=== PATIENT | male | born 1955 | race Caucasian/White ===

== ENCOUNTER 2020-06-04 01:36 | Emergency (ER) | payer MEDICARE, OTHER ==
[~2020-06-04] VITALS: Ht 170.2 cm; Wt 70.3 kg
--- NOTE | 2020-06-04 01:40 | NUR ---
at bedside for MSE
--- NOTE | 2020-06-04 02:00 | NUR ---
Dr. Mena inserted GT 18 fr pt tolerated well no trauma, no bleeding GT patent, intact
[2020-06-04] MEDS ORDERED: POLY17PO4 GT (02:05)
[2020-06-04] MEDS ORDERED: LEVE100S GT (02:05)
[2020-06-04] MEDS ORDERED: MAGN400O6 GT (02:05)
[2020-06-04] MEDS ORDERED: CLON0.1T GT (02:05)
[2020-06-04] MEDS ORDERED: AMLO5TAB4 GT (02:05)
[2020-06-04] MEDS ORDERED: IPRA0.2S48 NEB (02:05)
[2020-06-04] MEDS ORDERED: DOCU-141 GT (02:05)
[2020-06-04] MEDS ORDERED: FAMO-132 GT (02:05)
[2020-06-04] MEDS ORDERED: ACET-2154 GT (02:05)
[2020-06-04] MEDS ORDERED: IV NORMAL SALINE 1000 ML BAG IV ONE (02:30)
[2020-06-04 02:35] LABS: BASOPHILS # (AUTO) 0.1 K/uL (0.0-8.0); BASOPHILS % (AUTO) 0.7 % (0.0-2.0); EOSINOPHILS # (AUTO) 0.1 K/uL (0.0-0.7); EOSINOPHILS % (AUTO) 0.5 % (0.0-7.0); HEMATOCRIT 41.4 % (36.7-47.1); HEMOGLOBIN 13.9 g/dL (12.5-16.3); LYMPHOCYTES # (AUTO) 1.8 K/uL (20.0-40.0); LYMPHOCYTES % (AUTO) 15.7 % (20.5-51.5); MEAN CORPUSCULAR HGB CONC 34 g/dL (32.5-36.3); MEAN CORPUSCULAR VOLUME 95.4 fL (73.0-96.2); MONOCYTES # (AUTO) 0.7 K/uL (2.0-10.0); MONOCYTES % (AUTO) 6.4 % (0.0-11.0); NEUTROPHILS # (AUTO) 8.8 K/uL (1.8-8.9); NEUTROPHILS % (AUTO) 76.7 % (38.5-71.5); PLATELET COUNT (AUTO) 312 K/uL (152-348); RED BLOOD CELL COUNT(AUTO) 4.34 MIL/uL (4.06-5.63); WHITE BLOOD COUNT (AUTO) 11.5 K/uL (3.6-10.2)
[2020-06-04 02:45] LABS: CREATININE 0.9 mg/dL (0.6-1.3); POTASSIUM 4.3 mmol/L (3.5-5.1)
[2020-06-04 02:46] LABS: *BILIRUBIN,URIN NEGATIVE (NEGATIVE); *BLOOD, URINE NEGATIVE (NEGATIVE); *CLARITY,URINE CLEAR (CLEAR); *COLOR,URINE YELLOW (YELLOW); *KETONES,URINE NEGATIVE (NEGATIVE); *UROBILINOGEN,URINE 0.2 E.U./dl (NORMAL); LEUKOCYTE ESTERASE ,URINE NEGATIVE (NEGATIVE); NITRITE, URINE NEGATIVE (NEGATIVE); UGLUCOSE NEGATIVE (NEGATIVE)
--- NOTE | 2020-06-04 02:50 | NUR ---
Xray at bedside
[2020-06-04 02:57] LABS: BILIRUBIN,DIRECT 0.1 mg/dL (0.0-0.2); BILIRUBIN,TOTAL 0.6 mg/dL (0.2-1.0); TOTAL PROTEIN, SERUM 8.6 g/dL (6.4-8.2)
--- NOTE | 2020-06-04 04:00 | NUR ---
pt in bed, asleep. easily arousable no s/s of distress respirations even and unlabored safety precaution in place. bed locked, lowest position. Will continue to monitor pt
[2020-06-04] MEDS ORDERED: levoFLOXacin 750MG/D5W 750 MG in PREMIXED 1 EACH IV SCH (04:30)
--- NOTE | 2020-06-04 04:31 | NUR ---
Called for bed, spoke with JIN Alvarado. Tele 314
--- NOTE | 2020-06-04 04:34 | NUR ---
Called [facility] for panel call. Waiting for call back from Dr. Elias
[2020-06-04] MEDS ORDERED: levoFLOXacin 750MG/D5W 150 ML IV ONE (04:39)
--- NOTE | 2020-06-04 05:02 | NUR ---
Dr. Mena on panel call with Dr. Elias
--- NOTE | 2020-06-04 05:22 | NUR ---
Check pt's temperature. Temp 98.9 oral
--- NOTE | 2020-06-04 06:30 | NUR ---
Per Dr. Mena and Dr. Elias, pt will be transferred back to facility.
--- NOTE | 2020-06-04 06:41 | NUR ---
Called [facility], spoke to Tito Sue up ETA 1222
--- NOTE | 2020-06-04 07:08 | NUR ---
report given to JIN Kam
--- NOTE | 2020-06-04 07:10 | NUR ---
Reposition for comfort. Pt is afbrile at this time. HR range 95-116 p/min. Awaiting ambulance transfer.
--- NOTE | 2020-06-04 08:03 | NUR ---
Patient is resting comfortably in bed with eyes closed, NAD noted.
--- NOTE | 2020-06-04 08:39 | NUR ---
Report given to software clerk [facility] Pt left ER in stable condition, discharge paperwork and script provided. All belongings sent w/ Pt.
[2020-06-04 08:48] VITALS: BP 128/80
== END 2020-06-04 08:49 ==
LOC: ER 01:39
DX: J18.9 Pneumonia, unspecified organism (principal); E86.0 Dehydration; K94.23 Gastrostomy malfunction; G40.909 Epilepsy, unspecified, not intractable, without status epilepticus; I69.919 Unspecified symptoms and signs involving cognitive functions following unspecified cerebrovascular disease; I25.10 Atherosclerotic heart disease of native coronary artery without angina pectoris; Z86.19 Personal history of other infectious and parasitic diseases; Z79.899 Other long term (current) drug therapy; K21.9 Gastro-esophageal reflux disease without esophagitis; M19.90 Unspecified osteoarthritis, unspecified site; F01.51 Vascular dementia, unspecified severity, with behavioral disturbance; R79.89 Other specified abnormal findings of blood chemistry
CPT/HCPCS: 36415; 71045; 80048; 80076; 81001; 83605; 83880; 84443; 84484; 85025; 85730; 87040 ×2; 87086; 87426; 93005; 96365; 96366; 99285; J1956; 70030-TC; J7030

== ENCOUNTER 2020-10-06 15:01 | Inpatient (IN) | payer MEDICARE, OTHER ==
[~2020-10-06] VITALS: Ht 177.8 cm; Wt 74.4 kg
[~2020-10-06 15:01] MED LIST: ACET-2154 GT; AMLO5TAB4 GT; CLON0.1T GT; DOCU-141 GT; FAMO-132 GT; IPRA0.2S48 NEB; LEVE100S GT; MAGN400O6 GT; POLY17PO4 GT
[2020-10-06] MEDS ORDERED: PANTOPRAZOLE SODIUM 40 MG VIAL IV ONE (15:30)
[2020-10-06] MEDS ORDERED: PIPERACILLIN SODIUM/TAZOBACTAM 3.375 G in IV DEXTROSE 5% 50 ML IV ONE (15:30)
[2020-10-06] MEDS ORDERED: ACETAMINOPHEN 650 MG/20.3 ML LIQUID UDC GT ONE (15:30)
[2020-10-06] MEDS ORDERED: IV NORMAL SALINE 1000 ML BAG IV ONE (15:30)
[2020-10-06 16:06] LABS: BASOPHILS # (AUTO) 0.1 K/uL (0.0-8.0); EOSINOPHILS # (AUTO) 0.4 K/uL (0.0-0.7); EOSINOPHILS % (AUTO) 3.2 % (0.0-7.0); HEMATOCRIT 43.5 % (36.7-47.1); HEMOGLOBIN 14.1 g/dL (12.5-16.3); LYMPHOCYTES # (AUTO) 2.7 K/uL (20.0-40.0); LYMPHOCYTES % (AUTO) 21.2 % (20.5-51.5); MEAN CORPUSCULAR HEMOGLOBIN 31.8 uug (23.8-33.4); MEAN CORPUSCULAR HGB CONC 32 g/dL (32.5-36.3); MEAN CORPUSCULAR VOLUME 98.3 fL (73.0-96.2); MONOCYTES # (AUTO) 0.8 K/uL (2.0-10.0); MONOCYTES % (AUTO) 5.9 % (0.0-11.0); NEUTROPHILS # (AUTO) 8.9 K/uL (1.8-8.9); NEUTROPHILS % (AUTO) 68.7 % (38.5-71.5); PLATELET COUNT (AUTO) 250 K/uL (152-348); RED BLOOD CELL COUNT(AUTO) 4.43 MIL/uL (4.06-5.63)
[2020-10-06 16:27] LABS: CREATININE 0.8 mg/dL (0.6-1.3)
[2020-10-06] MEDS ORDERED: PIPERACILLIN/TAZOBACTAM/D5W 50 ML IV ONE (16:35)
[2020-10-06] MEDS ORDERED: ACETAMINOPHEN 650 MG/20.3 ML LIQUID UDC ONE (16:35)
[2020-10-06] MEDS ORDERED: PANTOPRAZOLE SODIUM 40 MG VIAL ONE (16:35)
[2020-10-06 16:43] LABS: BILIRUBIN,TOTAL 0.4 mg/dL (0.2-1.0); TOTAL PROTEIN, SERUM 8.4 g/dL (6.4-8.2)
[2020-10-06] MEDS ORDERED: LEVE500S9 GT (16:56)
[2020-10-06] MEDS ORDERED: IPRA4AER IH (16:56)
[2020-10-06 17:02] LABS: *BILIRUBIN,URIN NEGATIVE (NEGATIVE); *BLOOD, URINE 1+ (NEGATIVE); *CLARITY,URINE CLEAR (CLEAR); *COLOR,URINE YELLOW (YELLOW); *KETONES,URINE TRACE (NEGATIVE); *UROBILINOGEN,URINE 0.2 E.U./dl (NORMAL); LEUKOCYTE ESTERASE ,URINE NEGATIVE (NEGATIVE); NITRITE, URINE NEGATIVE (NEGATIVE); UGLUCOSE NEGATIVE (NEGATIVE)
--- NOTE | 2020-10-06 17:08 | NUR ---
65 years old male presents to er by ambulance from Nursing with fever, meds given as prescribed, non verbal, contracted will continue to monitor.
[2020-10-06] MEDS ORDERED: ENOXAPARIN SODIUM 80 MG/0.8 ML DISP.SYRIN SQ ONE ×2 (17:30→17:31)
[2020-10-06] MEDS ORDERED: MAGNESIUM HYDROXIDE 30 ML LIQUID UDC GT PRN (18:30)
[2020-10-06] MEDS ORDERED: MORPHINE SULFATE 2 MG/1 ML DISP.SYRIN IV PRN (18:45)
[2020-10-06] MEDS ORDERED: ACETAMINOPHEN 325 MG TABLET GT PRN (18:45)
[2020-10-06] MEDS ORDERED: ONDANSETRON 4 MG/2 ML VIAL IV PRN (18:45)
[2020-10-06 19:02] LABS: WBC,URINE 0-3 /HPF (0-3)
[2020-10-06 19:03] LABS: BACTERIA,URINE RARE /HPF (NONE SEEN); SQUAMOUS EPITHELIAL CELL,UR FEW /HPF (NONE SEEN)
--- NOTE | 2020-10-06 19:14 | NUR ---
report endorsed to 7pm RN all questions answered
--- NOTE | 2020-10-06 20:00 | NUR ---
Noted pt. in bed contractures noted to BUE and BLE. G-tube in place crusted area noted around. Patient AAOx1. non-verbal.
--- NOTE | 2020-10-06 20:15 | NUR ---
temp of 98.8 orally sbp of 112/60, hr of 81, rr 21.
--- NOTE | 2020-10-06 23:09 | NUR ---
Telephone report given to R.N. Will pt. will be taken to room 303. with SL patent to daniel Splinter.me G 20 R.N. informed to follow up on admitting orders not verified by pharmacy yet, as pt. with medications not verified and no official endorsement from staff.
--- NOTE | 2020-10-06 23:11 | NUR ---
HR of 89, 118/73, RR 27. 98.8. patient noted sweaty with dump skin.
[2020-10-06] MEDS ORDERED: VANCOMYCIN IV 1,250 MG in IV DEXTROSE 5% 250 ML IV ONE (23:30)
--- NOTE | 2020-10-06 23:40 | NUR ---
ADMITTED PATIENT ON TELE FLOOR UNDER THE CARE OF TOLU MAKE UP ARTIST, PATIENT AWAKE BUT SPEECH GARBLE, PATIENT HAS GT IN PLACE, UPPER AND LOWER EXTREMITIES CONTRACTED. PATIENT COOPERATIVE WITH CARE, AFEBRILE CONT TO MONITOR.
[2020-10-07] MEDS ORDERED: VANCOMYCIN 1000 MG VIAL ONE (00:43)
[2020-10-07] MEDS ORDERED: VANCOMYCIN HCL 500 MG VIAL ONE (00:43)
[2020-10-07] MEDS ORDERED: PIPERACILLIN/TAZOBACTAM/D5W 100 ML IV ONE (00:45)
[2020-10-07 00:55] VITALS: BP 122/64
[2020-10-07] MEDS: PIPERACILLIN SODIUM/TAZOBACTAM 3.375 G in IV DEXTROSE 5% 50 ML IV SCH ×4 (01:26→18:51)
[2020-10-07 05:25] VITALS: BP 112/65
[2020-10-07 08:49] VITALS: BP 117/69
[2020-10-07] MEDS: levETIRAcetam 500 MG TABLET GT SCH ×2 (08:55→22:17)
[2020-10-07] MEDS: FAMOTIDINE 20 MG TABLET GT SCH (08:55)
[2020-10-07] MEDS: MIRALAX 17 GM POWD.PACK GT SCH ×2 (08:55→17:00)
[2020-10-07 09:28] LABS: BASOPHILS % (AUTO) 0.5 % (0.0-2.0); EOSINOPHILS # (AUTO) 0.4 K/uL (0.0-0.7); EOSINOPHILS % (AUTO) 3.8 % (0.0-7.0); HEMATOCRIT 38.1 % (36.7-47.1); HEMOGLOBIN 12.9 g/dL (12.5-16.3); LYMPHOCYTES # (AUTO) 1.5 K/uL (20.0-40.0); LYMPHOCYTES % (AUTO) 15.4 % (20.5-51.5); MEAN CORPUSCULAR HEMOGLOBIN 33.2 uug (23.8-33.4); MEAN CORPUSCULAR HGB CONC 34 g/dL (32.5-36.3); MEAN CORPUSCULAR VOLUME 98.3 fL (73.0-96.2); MONOCYTES # (AUTO) 0.6 K/uL (2.0-10.0); MONOCYTES % (AUTO) 5.9 % (0.0-11.0); NEUTROPHILS # (AUTO) 7.4 K/uL (1.8-8.9); NEUTROPHILS % (AUTO) 74.4 % (38.5-71.5); PLATELET COUNT (AUTO) 192 K/uL (152-348); RED BLOOD CELL COUNT(AUTO) 3.88 MIL/uL (4.06-5.63)
[2020-10-07 09:48] LABS: BILIRUBIN,TOTAL 0.9 mg/dL (0.2-1.0); CREATININE 0.7 mg/dL (0.6-1.3); MAGNESIUM 2.3 mg/dL (1.8-2.4); PHOSPHOROUS 2.7 mg/dL (2.5-4.9); POTASSIUM 3.9 mmol/L (3.5-5.1); TOTAL PROTEIN, SERUM 7.7 g/dL (6.4-8.2)
[2020-10-07 09:52] LABS: THYROID STIMULATING HORMONE 0.74 mIU/mL (0.358-3.740)
[2020-10-07 11:44] VITALS: BP 119/71
[2020-10-07] MEDS: JEVITY 1.2 1000 ML LIQUID GT PRN (12:24)
--- NOTE | 2020-10-07 13:03 | NUR ---
PATIENT STARTED ON TUBE FEEDING, NO RESIDUAL. RADIOLOGY CALLED REGARDING CT ABDOMEN WITH CONTRAST. WILL FOLLOW-UP WITH CONSENT
[2020-10-07] MEDS: VANCOMYCIN IV 1,250 MG in IV DEXTROSE 5% 250 ML IV SCH (14:10)
[2020-10-07 16:23] VITALS: BP 115/69
[2020-10-07] MEDS ORDERED: DIATR MEGLU/DIATRIZOATE SODIUM 30 ML BOTTLE ONE (16:54)
--- NOTE | 2020-10-07 17:18 | NUR ---
HELD MIRALAX AT THIS TIME. WILL INJECT GASTROGRAFIN FOR CT ABDOMEN WITH CONTRAST
--- NOTE | 2020-10-07 18:55 | NUR ---
Administered contrast via gtube. Informed [facility] radiology. Tolerated well. Gtube feeding stopped at 1700. Patient stable throughout shift. On 5L NC, grunting but saturating 96%, follows commands. Safety precaution in place
[2020-10-07 20:00] VITALS: BP 118/61
[2020-10-07] MEDS ORDERED: IOHEXOL 300MG/ML 100 ML INFUS..BTL ONE (20:22)
[2020-10-07] MEDS ORDERED: IV NORMAL SALINE 250 ML IV ONE (20:22)
[2020-10-07] MEDS ORDERED: SWABABLE VALVE TRANSFER SET EA MC ONE (20:22)
[2020-10-08] MEDS: PIPERACILLIN SODIUM/TAZOBACTAM 3.375 G in IV DEXTROSE 5% 50 ML IV SCH ×4 (00:54→17:01)
[2020-10-08] MEDS: VANCOMYCIN IV 1,250 MG in IV DEXTROSE 5% 250 ML IV SCH ×2 (01:26→15:43)
[2020-10-08 04:00] VITALS: BP 139/70
--- NOTE | 2020-10-08 07:10 | NUR ---
RECEIVED IN BED AWARE NON VERBAL ,VS ARE STABLE PT IS ON O2 2L NC.CALL LIGHT WITH IN REACH
[2020-10-08] MEDS: FAMOTIDINE 20 MG TABLET GT SCH (07:56)
[2020-10-08] MEDS: levETIRAcetam 500 MG TABLET GT SCH ×2 (07:56→22:42)
[2020-10-08] MEDS: MIRALAX 17 GM POWD.PACK GT SCH ×2 (07:56→16:08)
--- NOTE | 2020-10-08 07:58 | NUR ---
PATIENT REMAIN STABLE AT THIS TIME, NO SOB NO CHEST PAIN, GTF TOLERATE WELL NO NAUSEA NO VOMITING, NO FEVER, CONT TO MONITOR. TELE MONITOR SINUS RHYTHM.
[2020-10-08 08:40] LABS: CREATININE 0.7 mg/dL (0.6-1.3); MAGNESIUM 2.1 mg/dL (1.8-2.4); PHOSPHOROUS 2.5 mg/dL (2.5-4.9); POTASSIUM 3.8 mmol/L (3.5-5.1)
[2020-10-08 08:43] LABS: BASOPHILS % (AUTO) 0.7 % (0.0-2.0); EOSINOPHILS # (AUTO) 0.5 K/uL (0.0-0.7); EOSINOPHILS % (AUTO) 7.8 % (0.0-7.0); HEMATOCRIT 34.9 % (36.7-47.1); HEMOGLOBIN 11.7 g/dL (12.5-16.3); LYMPHOCYTES # (AUTO) 1.3 K/uL (20.0-40.0); LYMPHOCYTES % (AUTO) 20.3 % (20.5-51.5); MEAN CORPUSCULAR HEMOGLOBIN 32.9 uug (23.8-33.4); MEAN CORPUSCULAR HGB CONC 34 g/dL (32.5-36.3); MEAN CORPUSCULAR VOLUME 98.4 fL (73.0-96.2); MONOCYTES # (AUTO) 0.4 K/uL (2.0-10.0); MONOCYTES % (AUTO) 5.6 % (0.0-11.0); NEUTROPHILS # (AUTO) 4.1 K/uL (1.8-8.9); NEUTROPHILS % (AUTO) 65.6 % (38.5-71.5); PLATELET COUNT (AUTO) 185 K/uL (152-348); RED BLOOD CELL COUNT(AUTO) 3.55 MIL/uL (4.06-5.63); WHITE BLOOD COUNT (AUTO) 6.3 K/uL (3.6-10.2)
[2020-10-08] MEDS ORDERED: MAGNESIUM CITRATE 296 ML BOTTLE GT ONE (11:00)
[2020-10-08 11:02] VITALS: BP 109/64
[2020-10-08] MEDS: JEVITY 1.2 1000 ML LIQUID GT PRN (15:29)
[2020-10-08 15:34] VITALS: BP 134/73
[2020-10-08 20:29] VITALS: BP 126/44
[2020-10-08] MEDS ORDERED: BISACODYL 5 MG TABLET.DR PO ONE (20:30)
[2020-10-08] MEDS: MIRALAX 17 GM POWD.PACK PO SCH (20:30)
[2020-10-08] MEDS: DOCUSATE SODIUM 100 MG/10 ML LIQUID UDC GT SCH (22:44)
[2020-10-09] MEDS: PIPERACILLIN SODIUM/TAZOBACTAM 3.375 G in IV DEXTROSE 5% 50 ML IV SCH ×2 (00:05→05:01)
[2020-10-09 01:06] VITALS: BP 125/60
[2020-10-09 05:33] VITALS: BP 132/69
--- NOTE | 2020-10-09 07:45 | NUR ---
Received report from restaurant shift leader nurse. PT in bed, asleep with safety measures. No acute distress or SOB noted. PT looked comfortable in bed. During report, PT was noted with 2 large watery BM. Will continue to monitor. All appropriate information given.
[2020-10-09 07:49] LABS: CARBON DIOXIDE 28 mmol/L (21-32); CHLORIDE 111 mmol/L (98-107); CREATININE 0.6 mg/dL (0.6-1.3); GLUCOSE 115 mg/dL (74-106); POTASSIUM 4.2 mmol/L (3.5-5.1); UREA NITROGEN, BLOOD 16 mg/dL (7-18)
[2020-10-09] MEDS: DOCUSATE SODIUM 100 MG/10 ML LIQUID UDC GT SCH ×2 (09:00→22:03)
[2020-10-09] MEDS: MIRALAX 17 GM POWD.PACK PO SCH (09:00)
[2020-10-09] MEDS: MIRALAX 17 GM POWD.PACK GT SCH ×2 (09:00→17:00)
[2020-10-09] MEDS: FAMOTIDINE 20 MG TABLET GT SCH (09:18)
[2020-10-09] MEDS: levETIRAcetam 500 MG TABLET GT SCH ×2 (09:18→22:03)
[2020-10-09 11:24] VITALS: BP 132/72
[2020-10-09] MEDS: JEVITY 1.2 1000 ML LIQUID GT PRN (12:00)
[2020-10-09] MEDS: PIPERACILLIN SODIUM/TAZOBACTAM 3.37 G in IV DEXTROSE 5% 100 ML IV SCH ×2 (14:57→22:04)
[2020-10-09 15:26] VITALS: BP 120/75
--- NOTE | 2020-10-09 19:15 | NUR ---
Report given to scene shifter nurse. PT in bed, asleep and comfortable with safety measures. No acute distress or SOB. No pain noted at this time. Continue with safety measures, call light within reach, bed low and lock.
--- NOTE | 2020-10-09 19:55 | NUR ---
Patient in bed. awake non verbal .HOB elevated.On 2LPM via NC saturating at 97%.Gtube in place.No residual noted. Observed aspiration precaution at all times.Due meds given.No a/r noted. Iv on right hand patent and intact. Continue safety measures. VSS.
[2020-10-09 20:31] VITALS: BP 119/68
[2020-10-10 04:20] VITALS: BP 138/65
[2020-10-10] MEDS: PIPERACILLIN SODIUM/TAZOBACTAM 3.37 G in IV DEXTROSE 5% 100 ML IV SCH ×2 (05:12→13:24)
[2020-10-10 07:11] LABS: CREATININE 0.8 mg/dL (0.6-1.3); POTASSIUM 4.2 mmol/L (3.5-5.1)
[2020-10-10] MEDS: MIRALAX 17 GM POWD.PACK PO SCH (09:00)
[2020-10-10] MEDS: FAMOTIDINE 20 MG TABLET GT SCH (09:14)
[2020-10-10] MEDS: levETIRAcetam 500 MG TABLET GT SCH (09:15)
[2020-10-10] MEDS: DOCUSATE SODIUM 100 MG/10 ML LIQUID UDC GT SCH (09:15)
[2020-10-10] MEDS: MIRALAX 17 GM POWD.PACK GT SCH ×2 (09:16→17:00)
--- NOTE | 2020-10-10 11:20 | NUR ---
[facility]: This SW spoke with Argentina Soriano ([phone]) (F:[phone]) and stated pt is ready for dc and will fax clinicals for review. Argentina stated she will contact this documentation writer after reviewing.
[2020-10-10 11:48] VITALS: BP 135/68
[2020-10-10] MEDS ORDERED: MAGN400O6 GT (13:03)
[2020-10-10] MEDS ORDERED: AMLO2.5T2 GT (13:03)
[2020-10-10] MEDS ORDERED: DOCU50LI GT (13:03)
[2020-10-10] MEDS ORDERED: MULT-594 GT (13:03)
[2020-10-10] MEDS ORDERED: BACI30OI9 TP (13:03)
[2020-10-10] MEDS ORDERED: LACT-209 GT (13:03)
[2020-10-10] MEDS ORDERED: ACID1TAB4 GT (13:03)
[2020-10-10] MEDS ORDERED: PIPE3.379 IV (13:03)
[2020-10-10] MEDS ORDERED: ASCO500P18 GT (13:03)
[2020-10-10] MEDS ORDERED: ZINC113C9 TP (13:03)
[2020-10-10] MEDS ORDERED: ZINC1CAP2 GT (13:03)
[2020-10-10] MEDS ORDERED: ACET325T53 GT (13:03)
--- NOTE | 2020-10-10 13:27 | NUR ---
[facility]: This SW spoke with Argentina Soriano ([phone]) (F:[phone]) who stated pt is accepted today.
[2020-10-10 15:39] VITALS: BP 140/75
--- NOTE | 2020-10-10 18:30 | NUR ---
Patient discharged to [facility]. He is awake, non-verbal, not in any form of distress on 2 LPM oxygen via nasal cannula. No noted signs of pain or discomfort. Kept patient clean and comfortable. G-tube in place and patent. Vital signs stable. Report given to Trista ABDI at [facility]. Patient picked up by [facility] ambulance via gurney.
== END 2020-10-10 18:30 | DRG 871 ==
LOC: ER 15:01 → TELE3 23:08 → MEDSURG3 10-09 12:19
PROVIDERS: ADMIT Internal Medicine; ATTEND Internal Medicine
DX: A41.9 Sepsis, unspecified organism (principal); G92 Toxic encephalopathy; E87.0 Hyperosmolality and hypernatremia; A04.9 Bacterial intestinal infection, unspecified; J98.11 Atelectasis; K94.22 Gastrostomy infection; L03.311 Cellulitis of abdominal wall; D68.69 Other thrombophilia; N17.9 Acute kidney failure, unspecified; E86.0 Dehydration; K62.89 Other specified diseases of anus and rectum; N21.0 Calculus in bladder; K56.41 Fecal impaction; F01.50 Vascular dementia, unspecified severity, without behavioral disturbance, psychotic disturbance, mood disturbance, and anxiety; I10 Essential (primary) hypertension; G40.909 Epilepsy, unspecified, not intractable, without status epilepticus; K76.0 Fatty (change of) liver, not elsewhere classified; K42.9 Umbilical hernia without obstruction or gangrene; R13.10 Dysphagia, unspecified; I25.10 Atherosclerotic heart disease of native coronary artery without angina pectoris; M19.90 Unspecified osteoarthritis, unspecified site; L21.9 Seborrheic dermatitis, unspecified; K59.00 Constipation, unspecified; M81.0 Age-related osteoporosis without current pathological fracture
CPT/HCPCS: 36415; 70030-TC; 71045; 83605; 83615; 83735; 84100; 84443; 85025; 85730; 86140; 86850; 86900; 86901; 87040; 87086; 93005; C9113; G0378; J1650; J2543; J3370; J7040; J7050; J7060; Q9963; Q9967

== ENCOUNTER 2020-11-22 21:32 | Emergency (ER) | payer MEDICARE, OTHER ==
[~2020-11-22] VITALS: Ht 172.7 cm; Wt 68.0 kg
[~2020-11-22 21:32] MED LIST changes: -ACET-2154 GT; +ACET325T53 GT; +ACID1TAB4 GT; +AMLO2.5T2 GT; -AMLO5TAB4 GT; +ASCO500P18 GT; +BACI30OI9 TP; -CLON0.1T GT; -DOCU-141 GT; +DOCU50LI GT; -IPRA0.2S48 NEB; +LACT-209 GT; -LEVE100S GT; +LEVE500S9 GT; +MULT-594 GT; +PIPE3.379 IV; +ZINC113C9 TP; +ZINC1CAP2 GT
--- NOTE | 2020-11-22 21:33 | NUR ---
[facility] unit [facility] brought patient in, patient came in from [facility].
--- NOTE | 2020-11-22 21:39 | NUR ---
MD Weiss in room to see patient.
--- NOTE | 2020-11-22 21:45 | NUR ---
[facility] called, unit 305 will be taking the patient back to [facility].
--- NOTE | 2020-11-22 21:46 | NUR ---
[facility] contacted. JIN Clifton took report.
--- NOTE | 2020-11-22 22:00 | NUR ---
[facility] unit 305 in room to leaf size picker patient.
[2020-11-22 22:03] VITALS: BP 118/76
--- NOTE | 2020-11-22 22:03 | NUR ---
Patient discharged to home in stable condition. Written and verbal after care instructions given to [facility] unit [facility]. [facility] verbalizes understanding of instructions. Stressed follow up or return to ER for worsening s/s. Patient was transported via gurney back to [facility]. JIN Clifton was notified.
== END 2020-11-22 22:03 ==
LOC: ER 21:34
DX: Z43.1 Encounter for attention to gastrostomy (principal); G40.909 Epilepsy, unspecified, not intractable, without status epilepticus; Z87.01 Personal history of pneumonia (recurrent); F03.90 Unspecified dementia, unspecified severity, without behavioral disturbance, psychotic disturbance, mood disturbance, and anxiety
CPT/HCPCS: A4663

== ENCOUNTER 2021-02-21 01:19 | Inpatient (IN) | payer MEDICARE, OTHER ==
[~2021-02-21] VITALS: Ht 172.7 cm; Wt 77.2 kg
--- NOTE | 2021-02-21 00:47 | NUR ---
Patient brought to tele unit from Er via gurney accompanied by Er nurse.Dx of Seizure. Patient asleep with O2 inhalation at 2Lpm via Nc.No s/s of distress noted.Iv on right AC 20 g patent and intact with Dilantin running.Gt in place. PAtient incontinent to both B & B.SAfety measures in place. will continue to monitor.VSS Addendum: 02/21/21 at 0654 by DARON CHRITSOPHER RN Admitted patient at 0515 .
--- NOTE | 2021-02-21 01:40 | NUR ---
Dr. Walsh at bedside MSE in progress.
[2021-02-21] MEDS ORDERED: DIPH25CA83 GT (01:44)
[2021-02-21] MEDS ORDERED: AMLO2.5T2 GT (01:44)
[2021-02-21 02:07] LABS: BASOPHILS % (AUTO) 0.2 % (0.0-2.0); EOSINOPHILS % (AUTO) 0.1 % (0.0-7.0); HEMATOCRIT 43.6 % (36.7-47.1); HEMOGLOBIN 15.1 g/dL (12.5-16.3); LYMPHOCYTES # (AUTO) 0.9 K/uL (20.0-40.0); LYMPHOCYTES % (AUTO) 8.7 % (20.5-51.5); MEAN CORPUSCULAR HEMOGLOBIN 33.4 uug (23.8-33.4); MEAN CORPUSCULAR HGB CONC 35 g/dL (32.5-36.3); MEAN CORPUSCULAR VOLUME 96.3 fL (73.0-96.2); MONOCYTES # (AUTO) 0.4 K/uL (2.0-10.0); MONOCYTES % (AUTO) 4.2 % (0.0-11.0); NEUTROPHILS # (AUTO) 8.8 K/uL (1.8-8.9); NEUTROPHILS % (AUTO) 86.8 % (38.5-71.5); PLATELET COUNT (AUTO) 236 K/uL (152-348); RED BLOOD CELL COUNT(AUTO) 4.53 MIL/uL (4.06-5.63); WHITE BLOOD COUNT (AUTO) 10.2 K/uL (3.6-10.2)
[2021-02-21 02:12] LABS: CREATININE 0.8 mg/dL (0.6-1.3); POTASSIUM 3.9 mmol/L (3.5-5.1)
[2021-02-21 02:16] LABS: *BILIRUBIN,URIN NEGATIVE (NEGATIVE); *BLOOD, URINE NEGATIVE (NEGATIVE); *CLARITY,URINE CLOUDY (CLEAR); *COLOR,URINE YELLOW (YELLOW); *KETONES,URINE NEGATIVE (NEGATIVE); *UROBILINOGEN,URINE 0.2 E.U./dl (NORMAL); LEUKOCYTE ESTERASE ,URINE TRACE (NEGATIVE); NITRITE, URINE NEGATIVE (NEGATIVE); PH,URINE 7.5 (5.0-8.0); UGLUCOSE NEGATIVE (NEGATIVE)
[2021-02-21 02:18] LABS: BILIRUBIN,DIRECT 0.1 mg/dL (0.0-0.2); BILIRUBIN,TOTAL 0.4 mg/dL (0.2-1.0)
[2021-02-21 02:26] LABS: RBC,URINE 0-3 /HPF (0-3); WBC,URINE 0-3 /HPF (0-3)
[2021-02-21 02:27] LABS: URINE AMORPHOUS PHOSPHATES MANY /HPF
[2021-02-21] MEDS ORDERED: IV NORMAL SALINE 1000 ML BAG IV ONE (02:30)
--- NOTE | 2021-02-21 03:54 | NUR ---
Witnessed patient having seizure episode lasting approx [address] Weiss at bedside. Patient placed on 15L NRB saturating 100%.
[2021-02-21] MEDS ORDERED: PHENYTOIN SODIUM 250 MG/5 ML VIAL IV ONE (04:13)
[2021-02-21] MEDS ORDERED: PHENYTOIN SODIUM IV 1,000 MG in IV NORMAL SALINE 100 ML IV ONE (04:15)
--- NOTE | 2021-02-21 04:20 | NUR ---
Pt. admitted to Telemetry, under care of Tori Land. Diagnosis: Seizure Belongs List completed. MRSA swab done.
--- NOTE | 2021-02-21 05:15 | NUR ---
Patient brought to tele unit from Er via [facility] accompanied by Er nurse.Dx of Seizure. Patient asleep with O2 inhalation at 2Lpm via Nc.No s/s of distress noted.Iv on right AC 20 g patent and intact with Dilantin running.Gt in place. Patient incontinent to both B & B.Keshawn upper ext and lower ext contracted .SAfety measures in place. will continue to monitor.VSS
[2021-02-21 05:30] VITALS: BP 144/70
[2021-02-21] MEDS ORDERED: Z GUARD REMEDY PASTE 57 GM TUBE TOP PRN (06:00)
[2021-02-21] MEDS ORDERED: ZOLPIDEM 5 MG TABLET PO PRN (06:00)
[2021-02-21] MEDS ORDERED: ACETAMINOPHEN 325 MG TABLET PO PRN (06:00)
[2021-02-21] MEDS ORDERED: ONDANSETRON 4 MG/2 ML VIAL IV PRN (06:00)
[2021-02-21] MEDS ORDERED: JEVITY 1.2 1000 ML LIQUID GT PRN ×3 (06:00→11:45)
[2021-02-21] MEDS ORDERED: HYDROCODONE/APAP 5-325MG TABLET PO PRN (06:00)
[2021-02-21 08:33] VITALS: BP 114/68
--- NOTE | 2021-02-21 08:40 | NUR ---
Called Dr. Castañeda to notify him that in telemetry patient has been having artifacts in all the leads except Lead I, which reads Sinus Tach with PAC's at 110-120, with PAC's at 5-10 per minute. EKG in ER at 0148 AM was Sinus Tach with PAC and aberrant conduction. Primary RN is aware of this and has tried several times to troubleshoot on the telebox. Still same status. Aware of need of constant monitoring and rounding.
[2021-02-21] MEDS ORDERED: levETIRAcetam 500 MG TABLET PO SCH (09:00)
[2021-02-21] MEDS ORDERED: MULTIVITAMINS,THERAPEUTIC TABLET PO SCH (09:00)
[2021-02-21] MEDS: ACIDOPHILUS/BULGARICUS CHEW TAB GT SCH ×2 (09:43→17:17)
[2021-02-21] MEDS: AMLODIPINE 2.5 MG TABLET GT SCH (09:43)
[2021-02-21] MEDS: DOCUSATE SODIUM 100 MG/10 ML LIQUID UDC GT SCH ×2 (09:43→20:54)
[2021-02-21] MEDS: FAMOTIDINE 20 MG TABLET GT SCH (09:44)
[2021-02-21] MEDS: ENOXAPARIN SODIUM 40 MG/0.4 ML DISP.SYRIN SQ SCH (09:46)
[2021-02-21 11:28] VITALS: BP 120/75
--- NOTE | 2021-02-21 11:54 | NUR ---
Got residual of 160 ml g-tube feeding is on hold for 2 hours, will recheck in 2 hours
[2021-02-21] MEDS ORDERED: HYDROCODONE/APAP 5-325MG TABLET GT PRN (12:33)
[2021-02-21] MEDS ORDERED: ZOLPIDEM 5 MG TABLET GT PRN (12:33)
[2021-02-21] MEDS ORDERED: ACETAMINOPHEN 650 MG/20.3 ML LIQUID UDC GT PRN (12:45)
[2021-02-21 14:44] VITALS: BP 106/56
[2021-02-21] MEDS: JEVITY 1.2 1000 ML LIQUID GT PRN (15:22)
--- NOTE | 2021-02-21 18:00 | NUR ---
demonstrator sewing techniques noted pt to have sinus rhythm HR between 70s to 80s and with PAC noted to have sinus tachycardia between 100s to 110s, MD made aware. Check pt wrist noted to have HR of 80 at this time. Vital signs are BP 106/56 O2 Sat 97 at 2LPM respiration 18 Temp 97.5. Seizure precaution in placed. no seizure was noted. G-tube feeding running at 75 ml/hr for 22 hours. bed on semi-vazquez position. pt needs attended to and met. incontinent of B/B. kept clean and dry. will continue to monitor.
[2021-02-21 20:20] VITALS: BP 104/56
[2021-02-21] MEDS: levETIRAcetam 500 MG/5 ML LIQUID UDC GT SCH (20:54)
[2021-02-22 00:10] VITALS: BP 118/52
[2021-02-22 04:20] VITALS: BP 115/58
[2021-02-22 06:39] LABS: BASOPHILS % (AUTO) 0.5 % (0.0-2.0); EOSINOPHILS # (AUTO) 0.1 K/uL (0.0-0.7); EOSINOPHILS % (AUTO) 0.9 % (0.0-7.0); HEMATOCRIT 37.2 % (36.7-47.1); HEMOGLOBIN 12.4 g/dL (12.5-16.3); LYMPHOCYTES # (AUTO) 2.2 K/uL (20.0-40.0); LYMPHOCYTES % (AUTO) 29.6 % (20.5-51.5); MEAN CORPUSCULAR HEMOGLOBIN 32.4 uug (23.8-33.4); MEAN CORPUSCULAR HGB CONC 33 g/dL (32.5-36.3); MEAN CORPUSCULAR VOLUME 97.4 fL (73.0-96.2); MONOCYTES # (AUTO) 0.7 K/uL (2.0-10.0); MONOCYTES % (AUTO) 9.8 % (0.0-11.0); NEUTROPHILS # (AUTO) 4.4 K/uL (1.8-8.9); NEUTROPHILS % (AUTO) 59.2 % (38.5-71.5); PLATELET COUNT (AUTO) 196 K/uL (152-348); RED BLOOD CELL COUNT(AUTO) 3.82 MIL/uL (4.06-5.63); WHITE BLOOD COUNT (AUTO) 7.4 K/uL (3.6-10.2)
--- NOTE | 2021-02-22 06:39 | NUR ---
Patient slept well with 02 at 2LPM via NC.Hob elevated.Gtube in place with nooked 1.2 at 75cc/hr. to run x 22 hrs.Tolerated well. Off at 6 am.Aspiration precaution observed at all times.Patient on Tele NSR. Administered all due meds as ordered.No seizures noted through out the night.Incontinent to both B & B.Vss.
[2021-02-22 07:03] LABS: CARBON DIOXIDE 31 mmol/L (21-32); CHLORIDE 109 mmol/L (98-107); CHOLESTEROL 121 mg/dL (<200); CREATININE 0.6 mg/dL (0.6-1.3); GLUCOSE 106 mg/dL (74-106); HDL CHOLESTEROL 50 mg/dL (40-60); MAGNESIUM 2.1 mg/dL (1.8-2.4); PHOSPHOROUS 2.8 mg/dL (2.5-4.9); POTASSIUM 4.2 mmol/L (3.5-5.1); TRIGLYCERIDES 58 MG/DL (30-150); UREA NITROGEN, BLOOD 13 mg/dL (7-18)
[2021-02-22] MEDS: ACIDOPHILUS/BULGARICUS CHEW TAB GT SCH ×2 (08:48→16:24)
[2021-02-22] MEDS: FAMOTIDINE 20 MG TABLET GT SCH (08:48)
[2021-02-22] MEDS: AMLODIPINE 2.5 MG TABLET GT SCH (08:48)
[2021-02-22] MEDS: levETIRAcetam 500 MG/5 ML LIQUID UDC GT SCH ×2 (08:49→20:22)
[2021-02-22] MEDS: DOCUSATE SODIUM 100 MG/10 ML LIQUID UDC GT SCH ×2 (08:49→20:22)
[2021-02-22] MEDS: MULTIVITAMINS,THERAPEUTIC TABLET GT SCH (08:49)
[2021-02-22] MEDS: ENOXAPARIN SODIUM 40 MG/0.4 ML DISP.SYRIN SQ SCH (08:50)
[2021-02-22] MEDS: JEVITY 1.2 1000 ML LIQUID GT PRN ×2 (08:51→23:02)
[2021-02-22 11:50] VITALS: BP 121/71
[2021-02-22 15:58] VITALS: BP 131/44
[2021-02-22 20:25] VITALS: BP 134/67
[2021-02-23 04:30] VITALS: BP 41/86
--- NOTE | 2021-02-23 07:35 | NUR ---
Received patient awake on bed. on RA. no signs of acute distress. with right AC #20 saline lock. bed locked and in low position. will continue to monitor.
[2021-02-23] MEDS: ENOXAPARIN SODIUM 40 MG/0.4 ML DISP.SYRIN SQ SCH (08:39)
[2021-02-23] MEDS: levETIRAcetam 500 MG/5 ML LIQUID UDC GT SCH ×2 (08:40→20:53)
[2021-02-23] MEDS: ACIDOPHILUS/BULGARICUS CHEW TAB GT SCH ×2 (08:40→17:19)
[2021-02-23] MEDS: AMLODIPINE 2.5 MG TABLET GT SCH (08:40)
[2021-02-23] MEDS: FAMOTIDINE 20 MG TABLET GT SCH (08:40)
[2021-02-23] MEDS: MULTIVITAMINS,THERAPEUTIC TABLET GT SCH (08:40)
[2021-02-23] MEDS: DOCUSATE SODIUM 100 MG/10 ML LIQUID UDC GT SCH ×2 (08:40→20:53)
[2021-02-23] MEDS: JEVITY 1.2 1000 ML LIQUID GT PRN (10:12)
--- NOTE | 2021-02-23 11:28 | NUR ---
WOUND CARE CONSULT: PT SEEN FOR REDNESS/RASH TO AXILLARY AREAS, ESPECIALLY RT AXILLA, PRESENT ON ADMISSION. PT NOTED TO HAVE CONTRACTED UPPER AND LOWER EXTREMITIES. RECOMMENDATIONS MADE FOR SKIN PROTECTION. DISCUSSED WITH NURSING STAFF. IN AGREEMENT WITH PLAN OF CARE. Addendum: 02/23/21 at 1129 by AMERICA OJEDA RN Amended: Links added.
[2021-02-23 11:55] VITALS: BP 119/65
[2021-02-23 15:16] VITALS: BP 143/69
--- NOTE | 2021-02-23 15:30 | NUR ---
Patient accidentally pulled out right forearm IV access while ambulating. No hematoma or redness on IV access. Covered site with gauze. Addendum: 02/23/21 at 1950 by SYED PRETTY RN RN Wrong patient entry.
[2021-02-23] MEDS ORDERED: IV NS 1000 ML 1,000 ML IV ONE (15:45)
[2021-02-23] MEDS: CLOTRIMAZOLE 1% CREAM 30 GM TUBE TOP SCH (17:19)
--- NOTE | 2021-02-23 18:45 | NUR ---
Bladder scan done. >388. Notified SANDIE Calderón. SANDIE Calderón ordered cool catheter insertion. Cool catheter inserted and patient tolerated procedure well. Cool catheter draining well. will continue to monitor.
--- NOTE | 2021-02-23 19:50 | NUR ---
Patient compliant with medications and care. No signs of acute distress. Will endorse to incoming shift for continuity of care.
[2021-02-23 20:15] VITALS: BP 128/64
[2021-02-24 04:18] VITALS: BP 126/72
--- NOTE | 2021-02-24 05:21 | NUR ---
Pt slept throughout the night. Denies pain or SOB. Barnett draining well. 1 liter of IV fluids given per order. GTube running Caterna 1.2 at 75cc, no residual. Safety and comfort provided. No other issues or concerns at this time, will endorse to day shift.
[2021-02-24 06:36] LABS: BASOPHILS % (AUTO) 0.7 % (0.0-2.0); EOSINOPHILS # (AUTO) 0.2 K/uL (0.0-0.7); EOSINOPHILS % (AUTO) 2.8 % (0.0-7.0); HEMATOCRIT 37.9 % (36.7-47.1); LYMPHOCYTES # (AUTO) 2.1 K/uL (20.0-40.0); LYMPHOCYTES % (AUTO) 30.4 % (20.5-51.5); MEAN CORPUSCULAR HEMOGLOBIN 33.2 uug (23.8-33.4); MEAN CORPUSCULAR HGB CONC 34 g/dL (32.5-36.3); MEAN CORPUSCULAR VOLUME 96.7 fL (73.0-96.2); MONOCYTES # (AUTO) 0.5 K/uL (2.0-10.0); MONOCYTES % (AUTO) 8.1 % (0.0-11.0); NEUTROPHILS # (AUTO) 3.9 K/uL (1.8-8.9); PLATELET COUNT (AUTO) 220 K/uL (152-348); RED BLOOD CELL COUNT(AUTO) 3.92 MIL/uL (4.06-5.63); WHITE BLOOD COUNT (AUTO) 6.8 K/uL (3.6-10.2)
[2021-02-24 07:14] LABS: ALANINE AMINOTRANSFERASE 19 U/L (16-63); ALKALINE PHOSPHATASE 125 U/L (50-136); ASPARTATE AMINOTRANSFERASE 17 U/L (15-37); BILIRUBIN,TOTAL 0.2 mg/dL (0.2-1.0); CARBON DIOXIDE 32 mmol/L (21-32); CHLORIDE 108 mmol/L (98-107); CREATININE 0.6 mg/dL (0.6-1.3); GLUCOSE 102 mg/dL (74-106); POTASSIUM 4.4 mmol/L (3.5-5.1); TOTAL PROTEIN, SERUM 7.6 g/dL (6.4-8.2); UREA NITROGEN, BLOOD 12 mg/dL (7-18)
[2021-02-24 08:30] VITALS: BP 124/72
[2021-02-24] MEDS: MULTIVITAMINS,THERAPEUTIC TABLET GT SCH (08:47)
[2021-02-24] MEDS: ACIDOPHILUS/BULGARICUS CHEW TAB GT SCH ×2 (08:47→16:02)
[2021-02-24] MEDS: FAMOTIDINE 20 MG TABLET GT SCH (08:47)
[2021-02-24] MEDS: levETIRAcetam 500 MG/5 ML LIQUID UDC GT SCH ×2 (08:47→20:53)
[2021-02-24] MEDS: DOCUSATE SODIUM 100 MG/10 ML LIQUID UDC GT SCH ×2 (08:47→20:53)
[2021-02-24] MEDS: AMLODIPINE 2.5 MG TABLET GT SCH (08:48)
[2021-02-24] MEDS: CLOTRIMAZOLE 1% CREAM 30 GM TUBE TOP SCH ×2 (08:48→16:02)
[2021-02-24] MEDS: ENOXAPARIN SODIUM 40 MG/0.4 ML DISP.SYRIN SQ SCH (08:49)
[2021-02-24] MEDS: JEVITY 1.2 1000 ML LIQUID GT PRN (08:54)
[2021-02-24 12:00] VITALS: BP 128/69
[2021-02-24 15:30] VITALS: BP 110/63
--- NOTE | 2021-02-24 18:31 | NUR ---
t in bed asleep. arousable to verbal stimuli. pt able to nod and mouth answers to simple questions, A&Ox1-2. pt on room air. pt has GT with TF Jevity 1.2 running @75ml/hr x 22hrs. cool cath in place draining clear, yellow urine. VSS. no acute distress noted. pt kept clean and dry.
[2021-02-24 20:00] VITALS: BP 115/72
[2021-02-25 04:00] VITALS: BP 128/80
--- NOTE | 2021-02-25 06:52 | NUR ---
Patient awake able to answer simple questions, rendered good sponge bath, treatment done on right and left, and facial axilla rashes, gt care done, no nausea no vomiting tolerate feeding well. Patient has no episode of seizure activity noted, cont to monitor.
[2021-02-25] MEDS: MULTIVITAMINS,THERAPEUTIC TABLET GT SCH (08:28)
[2021-02-25] MEDS: ACIDOPHILUS/BULGARICUS CHEW TAB GT SCH (08:28)
[2021-02-25] MEDS: FAMOTIDINE 20 MG TABLET GT SCH (08:28)
[2021-02-25] MEDS: AMLODIPINE 2.5 MG TABLET GT SCH (08:28)
[2021-02-25] MEDS: levETIRAcetam 500 MG/5 ML LIQUID UDC GT SCH (08:29)
[2021-02-25] MEDS: DOCUSATE SODIUM 100 MG/10 ML LIQUID UDC GT SCH (08:29)
[2021-02-25] MEDS: ENOXAPARIN SODIUM 40 MG/0.4 ML DISP.SYRIN SQ SCH (08:30)
[2021-02-25] MEDS: CLOTRIMAZOLE 1% CREAM 30 GM TUBE TOP SCH (08:52)
--- NOTE | 2021-02-25 09:54 | NUR ---
alert, non-verbal, but nodded head "yes" , or "no" Tube feeding resumed at this time, 0900
[2021-02-25 10:13] VITALS: BP 110/62
[2021-02-25 12:05] VITALS: BP 142/65
[2021-02-25] MEDS ORDERED: CLOT30CR24 TOP (13:21)
[2021-02-25] MEDS ORDERED: LACT-209 GT (13:21)
[2021-02-25] MEDS ORDERED: LEVE100S GT (13:21)
--- NOTE | 2021-02-25 13:37 | NUR ---
[facility] called the facility x 3times, nobody picked up the fone. Author took the liberty to send patient out , in case the facility needs report, they can always call back for more info. patient left the floor with GT intact, and indwelling cool remains in place. HL out.
== END 2021-02-25 15:30 | DRG 100 ==
LOC: ER 01:21 → TELE3 04:54 → MEDSURG3 02-22 11:11
PROVIDERS: ADMIT Nurse Practitioner Acute Care; ATTEND Nurse Practitioner Acute Care
DX: G40.909 Epilepsy, unspecified, not intractable, without status epilepticus (principal); J96.20 Acute and chronic respiratory failure, unspecified whether with hypoxia or hypercapnia; G93.41 Metabolic encephalopathy; D68.59 Other primary thrombophilia; F03.90 Unspecified dementia, unspecified severity, without behavioral disturbance, psychotic disturbance, mood disturbance, and anxiety; E83.52 Hypercalcemia; I10 Essential (primary) hypertension; I25.10 Atherosclerotic heart disease of native coronary artery without angina pectoris; L30.9 Dermatitis, unspecified; M19.90 Unspecified osteoarthritis, unspecified site; M81.0 Age-related osteoporosis without current pathological fracture; R13.10 Dysphagia, unspecified; Z74.01 Bed confinement status; Z86.73 Personal history of transient ischemic attack (TIA), and cerebral infarction without residual deficits; Z93.1 Gastrostomy status; Z93.0 Tracheostomy status; M24.542 Contracture, left hand; M24.541 Contracture, right hand; M24.574 Contracture, right foot; M24.575 Contracture, left foot; R33.9 Retention of urine, unspecified; Z20.822 Contact with and (suspected) exposure to COVID-19
CPT/HCPCS: 36415; 70450; 71045; 80299; 83735; 84100; 85025; 87040; 87086; 93005; A4663; C1758; G0378; J1165; J1650; J3490; J7030

== ENCOUNTER 2021-06-09 17:14 | Inpatient (IN) | payer MEDICARE, OTHER ==
[~2021-06-09] VITALS: Ht 152.4 cm; Wt 72.3 kg
[~2021-06-09 17:14] MED LIST changes: -BACI30OI9 TP; +CLOT30CR24 TOP; +DIPH25CA83 GT; +LEVE100S GT; -PIPE3.379 IV; -ZINC113C9 TP; -ZINC1CAP2 GT
[2021-06-09 17:54] LABS: ABG BASE EXCESS 5.2 mmol/L; ABG PCO2 44.4 mmHg (35.0-45.0); ABG PH 7.448 (7.350-7.450); ABG PO2 143.2 mmHg (75.0-100.0); ABG SITE RIGHT RADIAL; ABG TOTAL HEMOGLOBIN 14.7 G/dL (13.5-18.0); COHb 0.9 % (0.5-1.5); MetHb 0.3 % (0.0-1.5); O2Hb 97.9 % (94.0-97.0); VENT MODE Nasal Cannula
[2021-06-09 18:11] LABS: HEMATOCRIT 41.8 % (36.7-47.1); MEAN CORPUSCULAR HEMOGLOBIN 32.6 uug (23.8-33.4); MEAN CORPUSCULAR VOLUME 97.2 fL (73.0-96.2); PLATELET COUNT (AUTO) 198 K/uL (152-348)
[2021-06-09 18:15] LABS: CREATININE 0.7 mg/dL (0.6-1.3)
[2021-06-09 18:28] LABS: BILIRUBIN,DIRECT 0.2 mg/dL (0.0-0.2); BILIRUBIN,TOTAL 0.5 mg/dL (0.2-1.0); TOTAL PROTEIN, SERUM 7.9 g/dL (6.4-8.2)
[2021-06-09] MEDS ORDERED: CEFTRIAXONE 1 G in IV DEXTROSE 5% 50 ML IV ONE (18:30)
[2021-06-09] MEDS ORDERED: IV 1/2NS 1000 ML 1,000 ML IV ONE (18:30)
[2021-06-09 19:16] LABS: *BILIRUBIN,URIN NEGATIVE (NEGATIVE); *BLOOD, URINE NEGATIVE (NEGATIVE); *CLARITY,URINE CLEAR (CLEAR); *COLOR,URINE YELLOW (YELLOW); *KETONES,URINE NEGATIVE (NEGATIVE); *UROBILINOGEN,URINE 0.2 E.U./dl (NORMAL); LEUKOCYTE ESTERASE ,URINE TRACE (NEGATIVE); NITRITE, URINE NEGATIVE (NEGATIVE); UGLUCOSE NEGATIVE (NEGATIVE)
[2021-06-09] MEDS ORDERED: CEFTRIAXONE /D5W 50ML IVPB **ER PYXIS IV ONE (19:18)
[2021-06-09 19:24] LABS: BACTERIA,URINE NONE SEEN /HPF (NONE SEEN); MUCUS,URINE FEW /LPF (0-FEW); RBC,URINE 0-3 /HPF (0-3); SQUAMOUS EPITHELIAL CELL,UR FEW /HPF (NONE SEEN); URINE AMORPHOUS URATE FEW /HPF
--- NOTE | 2021-06-09 19:30 | NUR ---
Recieved report from JIN Romero. Pt. admitting dx fever. According to the assisted living facility pt. had fever for 1 week with sob prior to arrival. Pt sp02 is 95% on 1L nc. Pt a&ox1. Vss. No signs of distress. Will continue to monitor.
--- NOTE | 2021-06-09 20:11 | NUR ---
Called [facility] to page Dr. Wayne Beck.
--- NOTE | 2021-06-09 20:18 | NUR ---
Dr. Barrientos on panel call with Dr. Wayne Beck.
--- NOTE | 2021-06-09 20:30 | NUR ---
Pt resting comfortably in bed with eyes closed. Vss. Will continue to monitor.
[2021-06-09] MEDS ORDERED: ONDANSETRON 4 MG/2 ML VIAL IV PRN (20:45)
[2021-06-09] MEDS ORDERED: MAGNESIUM HYDROXIDE 30 ML LIQUID UDC GT PRN (20:45)
[2021-06-09] MEDS ORDERED: MORPHINE SULFATE 2 MG/1 ML DISP.SYRIN IV PRN (20:45)
[2021-06-09] MEDS ORDERED: ACETAMINOPHEN 325 MG TABLET GT PRN (20:45)
--- NOTE | 2021-06-09 21:15 | NUR ---
Gave report to JIN Gonzalez. Addendum: 06/09/21 at 2201 by RAMAN Gave report to JIN Billingsley.
[2021-06-09] MEDS ORDERED: AZITHROMYCIN IV 500 MG in IV DEXTROSE 5% 250 ML IV ONE (21:25)
--- NOTE | 2021-06-09 21:35 | NUR ---
Admitted a 65 y/o male to Telemetry with an admitting diagnosis of Fever and Desaturation. Transferred and repositioned comfortably in bed. Put on oxygen at 2LPM via NC saturating 98%. No signs of respiratory distress. NSR on tele. Pt can follow simple commands. Able to communicate with yes or no only. Pt denies pain or discomfort. BUE and BLE contracted. Gtube and IV access intact and patent. Admission care rendered. Safety measures initiated, call light within reach.
[2021-06-09] MEDS ORDERED: diphenhydrAMINE 25 MG/10 ML UDC GT PRN (21:45)
[2021-06-09 22:30] VITALS: BP 100/55
[2021-06-09] MEDS: levETIRAcetam 500 MG/5 ML LIQUID UDC GT SCH (22:46)
[2021-06-09] MEDS: DOCUSATE SODIUM 100 MG/10 ML LIQUID UDC GT SCH (22:46)
[2021-06-09] MEDS ORDERED: AZITHROMYCIN 500 MG VIAL IV ONE (23:08)
[2021-06-10 00:06] VITALS: BP 106/64
[2021-06-10] MEDS ORDERED: AZITHROMYCIN 200 MG/5 ML 15 ML ONE (04:17)
[2021-06-10 04:24] VITALS: BP 119/76
[2021-06-10 05:59] LABS: HEMATOCRIT 39.3 % (36.7-47.1); MEAN CORPUSCULAR HEMOGLOBIN 32.8 uug (23.8-33.4); MEAN CORPUSCULAR VOLUME 98.5 fL (73.0-96.2); PLATELET COUNT (AUTO) 170 K/uL (152-348)
[2021-06-10 06:25] LABS: ALANINE AMINOTRANSFERASE 21 U/L (16-63); ALKALINE PHOSPHATASE 74 U/L (50-136); ASPARTATE AMINOTRANSFERASE 15 U/L (15-37); BILIRUBIN,TOTAL 0.8 mg/dL (0.2-1.0); CARBON DIOXIDE 30 mmol/L (21-32); CHLORIDE 115 mmol/L (98-107); CHOLESTEROL 134 mg/dL (<200); CREATININE 0.6 mg/dL (0.6-1.3); GLUCOSE 97 mg/dL (74-106); HDL CHOLESTEROL 37 mg/dL (40-60); MAGNESIUM 2.2 mg/dL (1.8-2.4); PHOSPHOROUS 3.2 mg/dL (2.5-4.9); TOTAL PROTEIN, SERUM 7.4 g/dL (6.4-8.2); TRIGLYCERIDES 86 MG/DL (30-150); UREA NITROGEN, BLOOD 23 mg/dL (7-18)
--- NOTE | 2021-06-10 06:37 | NUR ---
No fever noted the entire shift. No signs of respiratory distress. Still on oxygen at 2L.Tolerated medications well via G-tube. IV antibiotics administered as ordered. Wound care provided. Cleansed partial thickness loss on left buttocks with NS, patted dry and covered with mepilex. Pending wound consult. Safety measures maintained at all times. All needs attended to and met.
[2021-06-10] MEDS ORDERED: IV NORMAL SALINE 250 ML IV ONE (07:29)
[2021-06-10] MEDS ORDERED: IOHEXOL 300MG/ML 100 ML INFUS..BTL ONE (07:29)
[2021-06-10 07:30] LABS: THYROID STIMULATING HORMONE 0.949 mIU/mL (0.358-3.740)
--- NOTE | 2021-06-10 08:00 | NUR ---
pt alert to name. Cleaned mouth as much as possible, able to take out greenish dried out sputum on right corner of mouth but pt still needs further mouth care. Pt got aggressive and tried to hit nursing. Flushed G tube feeding no obstruction no residual noted. Pt is in no acute distress call light.
--- NOTE | 2021-06-10 08:30 | NUR ---
NOTED pt contracted on his arms and knees. Pt on position. Noted wound on left buttock. Applied hydrogel and covered with mepilex.
[2021-06-10] MEDS ORDERED: MULTIVITAMINS 5 ML LIQUID UDC GT SCH (09:00)
[2021-06-10] MEDS: DOCUSATE SODIUM 100 MG/10 ML LIQUID UDC GT SCH ×2 (10:00→20:19)
[2021-06-10] MEDS: levETIRAcetam 500 MG/5 ML LIQUID UDC GT SCH ×2 (10:01→20:19)
[2021-06-10] MEDS: ASCORBIC ACID 500 MG TABLET GT SCH (10:01)
[2021-06-10] MEDS: MIRALAX 17 GM POWD.PACK GT SCH ×2 (10:01→16:34)
[2021-06-10] MEDS: MULTIVITAMINS,THERAPEUTIC TABLET GT SCH (10:02)
[2021-06-10] MEDS: FAMOTIDINE 20 MG TABLET GT SCH (10:02)
[2021-06-10] MEDS: AMLODIPINE 2.5 MG TABLET GT SCH (10:10)
--- NOTE | 2021-06-10 11:00 | NUR ---
Called [facility] called to clarify g-tube feeding spoke with dog license officer supervisor EVARISTO ABDI. Awaiting call back.
[2021-06-10] MEDS ORDERED: MAGNESIUM CITRATE 296 ML BOTTLE GT ONE (11:30)
[2021-06-10 12:00] VITALS: BP 131/80
[2021-06-10] MEDS ORDERED: JEVITY 1.2 1000 ML LIQUID GT PRN ×2 (15:00→16:19)
--- NOTE | 2021-06-10 15:00 | NUR ---
Spoke DR PIZANO OK TO continue RD recommendation for feeding since we don't carry Jevity 1.[address] recommends Jevity 1.2 @80cc/20hrs as goal rate.
[2021-06-10 16:00] VITALS: BP 128/74
[2021-06-10] MEDS: CEFTRIAXONE 1 G in IV DEXTROSE 5% 50 ML IV SCH (16:33)
--- NOTE | 2021-06-10 18:29 | NUR ---
I bed tech came to drop off air mattress. Pt is in no acute distress. Call light is within reach.
--- NOTE | 2021-06-10 19:30 | NUR ---
RECEIVED PT AWAKE, ALERT AND ORIENTEDX3. PT IN NO ACUTE DISTRESS. PT NONVERBAL. IV INTACT. PT ON 2L NASAL CANNULA.WILL START ON GTUBE FEEDING. SAFETY AND COMFORT PROVIDED. WILL CONTINUE TO MONITOR.
[2021-06-10 20:00] VITALS: BP 126/76
[2021-06-11] VITALS: BP 134/80
[2021-06-11 04:00] VITALS: BP 118/59
--- NOTE | 2021-06-11 06:20 | NUR ---
PT SLEPT INTERMITTENTLY. PT IN NO ACUTE DISTRESS. IV INTACT. PT ON SINUS RHYTHM. PRESCRIBED MEDICATION GIVEN AND PT TOLERATED IT WELL. PT TURNED AND REPOSITIONED. PT TOLERATING GTUBE FEEDING. GOAL RATE IS 80ML/HR. SAFETY AND COMFORT PROVIDED. ALL NEEDS ARE MET. WILL ENDORSE TO INCOMING NURSE FOR CONTINUITY OF CARE.
--- NOTE | 2021-06-11 07:46 | NUR ---
received in bed hob elevated eyes open and tracks but nonverbal. pt had removed his nasal cannula. put it back on 2Lpm spo2 97-98%. no distress noted. no s/sx of pain. gt is intact and patent. on seizure precaution. bed at lowest and locked. call light and personal items in reach. cont to monitor.
[2021-06-11] MEDS: DOCUSATE SODIUM 100 MG/10 ML LIQUID UDC GT SCH (08:52)
[2021-06-11] MEDS: ASCORBIC ACID 500 MG TABLET GT SCH (08:53)
[2021-06-11] MEDS: AMLODIPINE 2.5 MG TABLET GT SCH (08:53)
[2021-06-11] MEDS: FAMOTIDINE 20 MG TABLET GT SCH (08:53)
[2021-06-11] MEDS: levETIRAcetam 500 MG/5 ML LIQUID UDC GT SCH (08:53)
[2021-06-11] MEDS: MIRALAX 17 GM POWD.PACK GT SCH ×2 (08:53→17:18)
[2021-06-11] MEDS: MULTIVITAMINS,THERAPEUTIC TABLET GT SCH (08:53)
--- NOTE | 2021-06-11 10:48 | NUR ---
patient sleeping at this time. no resp distress. tolerating gt feeding. no n/v noted. hob elevated at all times.
[2021-06-11 12:00] VITALS: BP 123/83
--- NOTE | 2021-06-11 12:21 | NUR ---
Letty wound care nurse here to see the pt. No acute distress.
--- NOTE | 2021-06-11 12:44 | NUR ---
WOUND CARE CONSULT: PT PRESENTS WITH STAGE 3 ULCER TO LEFT BUTTOCK, PRESENT ON ADMISSION. DR LEDESMA NOTIFIED OF SURGICAL CONSULT REQUEST. RECOMMENDATIONS MADE FOR SKIN PROTECTION AND WOUND CARE. DISCUSSED WITH NURSING STAFF. IN AGREEMENT WITH PLAN OF CARE. PT IS ON [facility]. Addendum: 06/11/21 at 1245 by AMERICA OJEDA RN Amended: Links added.
[2021-06-11] MEDS ORDERED: CEPH500C2 GT (14:24)
[2021-06-11] MEDS ORDERED: NA P133E RC (14:24)
--- NOTE | 2021-06-11 14:49 | NUR ---
received critical result positive for mrsa nares. dr. gonzalez notified.
--- NOTE | 2021-06-11 15:20 | NUR ---
dr. gonzalez with new order for bactroban ointment q12hrs x 5 days for mrsa nares noted. will endorse to snf.
[2021-06-11 16:00] VITALS: BP 119/69
--- NOTE | 2021-06-11 17:00 | NUR ---
changed diaper. large bm noted. wound tx rendered.
[2021-06-11] MEDS: CEFTRIAXONE 1 G in IV DEXTROSE 5% 50 ML IV SCH (17:18)
--- NOTE | 2021-06-11 18:00 | NUR ---
called [facility]. transferred multiples times to nurse's station by demetris at it help desk analyst but no answer. provided hospital phone number to give to nurse and informed to call for report.
--- NOTE | 2021-06-11 19:00 | NUR ---
awake and responsive. no resp distress. on 2lpm nc spo2 96%. gt feeding jevity 1.2 currently at 60cc/hr tolerated. no nausea or vomiting noted. abdomen soft. on rocephin atb no adverse/allergic reaction noted. safety measures maintained. needs attended. call light in reach.
--- NOTE | 2021-06-11 20:04 | NUR ---
PATIENT DISCHARGE TO [facility] GAVE REPORT TO JAXSON ABDI.
[2021-06-11] MEDS ORDERED: MUPIROCIN 2% OINT 22 GM TUBE NS SCH (21:00)
== END 2021-06-11 23:29 | DRG 690 ==
LOC: ER 17:15 → TELE3 21:08 → MEDSURG3 06-11 17:15
PROVIDERS: ADMIT Internal Medicine; ATTEND Internal Medicine
DX: N39.0 Urinary tract infection, site not specified (principal); E87.0 Hyperosmolality and hypernatremia; G40.909 Epilepsy, unspecified, not intractable, without status epilepticus; I25.10 Atherosclerotic heart disease of native coronary artery without angina pectoris; R09.02 Hypoxemia; Z20.822 Contact with and (suspected) exposure to COVID-19; K56.41 Fecal impaction; I69.319 Unspecified symptoms and signs involving cognitive functions following cerebral infarction; F01.50 Vascular dementia, unspecified severity, without behavioral disturbance, psychotic disturbance, mood disturbance, and anxiety; I10 Essential (primary) hypertension; I69.320 Aphasia following cerebral infarction; J43.8 Other emphysema; T17.998A Other foreign object in respiratory tract, part unspecified causing other injury, initial encounter; Y92.129 Unspecified place in nursing home as the place of occurrence of the external cause; Z79.899 Other long term (current) drug therapy; Z93.1 Gastrostomy status; K21.9 Gastro-esophageal reflux disease without esophagitis; L21.9 Seborrheic dermatitis, unspecified; M19.90 Unspecified osteoarthritis, unspecified site; I69.391 Dysphagia following cerebral infarction; R13.10 Dysphagia, unspecified
CPT/HCPCS: 36415; 36600; 70030-TC; 71045; 71260; 83605; 83735; 84100; 84443; 85025; 85730; 87040; 87086; 87400; A6209; C1758; G0378; J0456; J0696; J3490; J7030; J7040; J7050; J7060; Q0144; Q0163; Q9967; U0003

== ENCOUNTER 2021-06-27 21:55 | Inpatient (IN) | payer MEDICARE, OTHER ==
[~2021-06-27] VITALS: Ht 172.7 cm; Wt 73.1 kg
[~2021-06-27 21:55] MED LIST changes: -ACID1TAB4 GT; +CEPH500C2 GT; -CLOT30CR24 TOP; -LEVE500S9 GT; +NA P133E RC
[2021-06-27] MEDS ORDERED: IV NORMAL SALINE 1000 ML BAG IV ONE (22:00)
[2021-06-27] MEDS ORDERED: LIDOCAINE 2% (UROJET) 10 ML JELLY MM ONE ×2 (22:00→22:33)
[2021-06-27] MEDS ORDERED: CEFTRIAXONE 1 G in IV DEXTROSE 5% 50 ML IV ONE (22:00)
--- NOTE | 2021-06-27 22:00 | NUR ---
PT BIB AMBULANCE FROM [facility] WITH FEVER OF 101.8 AND GIVEN TYLENOL 3 HRS MOLD MAKER PLASTIC MOLDS. NO SOB OR LABORED BREATHING. DR. AKBAR AT BEDSIDE, MSE IN PROGRESS.
[2021-06-27] MEDS ORDERED: ACETAMINOPHEN 650 MG/20.3 ML LIQUID UDC GT ONE (22:15)
[2021-06-27] MEDS ORDERED: ACETAMINOPHEN 650 MG/20.3 ML LIQUID UDC PO ONE (22:15)
[2021-06-27] MEDS ORDERED: IPRA4AER IH (22:29)
[2021-06-27] MEDS ORDERED: CLON0.1T GT (22:29)
[2021-06-27] MEDS ORDERED: ACETAMINOPHEN 650 MG/20.3 ML LIQUID UDC ONE (22:33)
[2021-06-27] MEDS ORDERED: CEFTRIAXONE /D5W 50ML IVPB **ER PYXIS IV ONE (22:33)
[2021-06-27 22:36] LABS: HEMATOCRIT 42.6 % (36.7-47.1); MEAN CORPUSCULAR VOLUME 99.5 fL (73.0-96.2); PLATELET COUNT (AUTO) 166 K/uL (152-348)
[2021-06-27 22:38] LABS: POTASSIUM 4.1 mmol/L (3.5-5.1)
[2021-06-27 22:51] LABS: BILIRUBIN,DIRECT 0.2 mg/dL (0.0-0.2); BILIRUBIN,TOTAL 0.6 mg/dL (0.2-1.0); TOTAL PROTEIN, SERUM 8.2 g/dL (6.4-8.2)
--- NOTE | 2021-06-27 23:10 | NUR ---
PT TAKEN DOWN FOR CT.
[2021-06-27 23:13] LABS: *BILIRUBIN,URIN NEGATIVE (NEGATIVE); *CLARITY,URINE CLEAR (CLEAR); *COLOR,URINE YELLOW (YELLOW); *KETONES,URINE TRACE (NEGATIVE); *UROBILINOGEN,URINE 0.2 E.U./dl (NORMAL); LEUKOCYTE ESTERASE ,URINE NEGATIVE (NEGATIVE); NITRITE, URINE NEGATIVE (NEGATIVE); UGLUCOSE NEGATIVE (NEGATIVE)
[2021-06-27 23:18] LABS: *BLOOD, URINE TRACE (NEGATIVE)
[2021-06-27 23:23] LABS: BACTERIA,URINE FEW /HPF (NONE SEEN); SQUAMOUS EPITHELIAL CELL,UR FEW /HPF (NONE SEEN)
[2021-06-27 23:24] LABS: MUCUS,URINE MODERATE /LPF (0-FEW)
--- NOTE | 2021-06-27 23:27 | NUR ---
CAME BACK FROM CT, VSS.
--- NOTE | 2021-06-27 23:37 | NUR ---
MANPREET MONTANO, JUDE REYES PAGED.
--- NOTE | 2021-06-28 00:14 | NUR ---
GAVE REPORT TO KIM TELE UNIT.
[2021-06-28] MEDS ORDERED: HYDROCODONE/APAP 5-325MG TABLET PO PRN ×2 (00:15→14:51)
[2021-06-28] MEDS ORDERED: MORPHINE SULFATE 2 MG/1 ML DISP.SYRIN IV PRN (00:15)
[2021-06-28] MEDS ORDERED: ONDANSETRON 4 MG/2 ML VIAL IV PRN (00:15)
[2021-06-28] MEDS ORDERED: MAGNESIUM HYDROXIDE 30 ML LIQUID UDC PO PRN (00:15)
[2021-06-28] MEDS ORDERED: LABETALOL HCL 100 MG/20 ML VIAL IV PRN (00:15)
[2021-06-28] MEDS ORDERED: hydrALAZINE HCL 20 MG/1 ML VIAL IV PRN (00:15)
[2021-06-28] MEDS ORDERED: IV D5 1/2 NS 1000 ML 1,000 ML IV SCH (00:15)
[2021-06-28 00:40] LABS: *AMPHETAMINE, URINE NEGATIVE (NEGATIVE); *CANNABINOID, URINE NEGATIVE (NEGATIVE); *COCCAINE, URINE NEGATIVE (NEGATIVE); *OPIATE, URINE NEGATIVE (NEGATIVE); *PHENCYCLIDINE SCREEN,URINE NEGATIVE (NEGATIVE)
--- NOTE | 2021-06-28 01:40 | NUR ---
Pt. admitted to TELE 308 , under care of DX: SEPSIS Belongs List completed
--- NOTE | 2021-06-28 01:40 | NUR ---
RECEIVED PT FROM ER VIA [facility]. DX:SEPSIS. PT IN NO ACUTE DISTRESS. PT IV INTACT. PT CONTRACTED. SKIN ISSUES DOCUMENTED.PT HAVE GTUBE INPLACE . SHELTER ASSESSMENT DONE. SAFETY AND COMFORT PROVIDED.ADMISSION PROCESS AND CARE PLAN INITIATED. BELONGING LIST DONE. WILL CONTINUE TO MONITOR.
[2021-06-28 02:14] VITALS: BP 122/65
--- NOTE | 2021-06-28 02:16 | NUR ---
COOLING MEASURES DONE. WILL CONTINUE TO MONITOR TEMP.
[2021-06-28] MEDS: ACETAMINOPHEN 325 MG TABLET PO PRN ×2 (03:36→04:31)
[2021-06-28 04:20] VITALS: BP 110/70
--- NOTE | 2021-06-28 05:00 | NUR ---
COOLING MEASURES DONE AND TYLENOL PRN GIVEN AT 0431H. WILL CONTINUE TO MONITOR.
--- NOTE | 2021-06-28 06:00 | NUR ---
PT SLEPT INTERMITTENTLY. PT IN NO ACUTE DISTRESS. PRESCRIBED MEDICATION GIVEN AND PT TOLERATED IT WELL. AT 0337H NORCO PRN GIVEN FOR FACIAL GRIMACE PAIN. AT 0431H TYLENOL 650 MG PRN GIVEN FOR PT . PT AFEBRILE. SAFETY AND COMFORT PROVIDED. ALL NEEDS ARE MET. WILL ENDORSE TO INCOMING NURSE FOR CONTINUITY OF CARE.
[2021-06-28] MEDS: MIRALAX 17 GM POWD.PACK PO SCH (08:37)
[2021-06-28] MEDS: AMLODIPINE 2.5 MG TABLET GT SCH (08:37)
[2021-06-28] MEDS: DOCUSATE SODIUM 100 MG/10 ML LIQUID UDC GT SCH ×2 (08:37→16:22)
[2021-06-28] MEDS: FAMOTIDINE 20 MG TABLET GT SCH (08:37)
[2021-06-28] MEDS: levETIRAcetam 500 MG/5 ML LIQUID UDC GT SCH ×2 (08:38→20:52)
[2021-06-28] MEDS: VANCOMYCIN IV 750 MG in IV DEXTROSE 5% 250 ML IV SCH ×2 (08:49→20:51)
[2021-06-28] MEDS ORDERED: VANCOMYCIN IV 1,000 MG in IV DEXTROSE 5% 250 ML IV SCH (09:00)
[2021-06-28] MEDS: IV 1/2NS 1000 ML 1,000 ML IV SCH (10:21)
[2021-06-28] MEDS: OSMOLITE 1.2 CAL 1,000 ML LIQUID GT PRN (10:42)
[2021-06-28 12:00] VITALS: BP 116/61
[2021-06-28 16:00] VITALS: BP 106/62
[2021-06-28 20:05] VITALS: BP 106/61
[2021-06-28] MEDS: CEFTRIAXONE 1 G in IV DEXTROSE 5% 50 ML IV SCH (21:51)
[2021-06-29] MEDS: IV 1/2NS 1000 ML 1,000 ML IV SCH ×2 (00:01→13:59)
[2021-06-29 04:05] VITALS: BP 105/51
--- NOTE | 2021-06-29 05:45 | NUR ---
Assumed care of patient from JIN Villela. Received patient lying in bed. Asleep, arouse to tactile stimuli. Opens eyes but non-verbal. Appears comfortable. GT feeding on going. IV site on left hand intact and patent. IVF infusing. Oral care rendered. Safety measure maintained.
[2021-06-29] MEDS: OSMOLITE 1.2 CAL 1,000 ML LIQUID GT PRN (05:48)
[2021-06-29 06:27] LABS: ALANINE AMINOTRANSFERASE 15 U/L (16-63); ALKALINE PHOSPHATASE 59 U/L (50-136); ASPARTATE AMINOTRANSFERASE 16 U/L (15-37); BILIRUBIN,TOTAL 0.5 mg/dL (0.2-1.0); CARBON DIOXIDE 31 mmol/L (21-32); CHLORIDE 114 mmol/L (98-107); CREATININE 0.5 mg/dL (0.6-1.3); GLUCOSE 91 mg/dL (74-106); HEMATOCRIT 34.2 % (36.7-47.1); MEAN CORPUSCULAR HEMOGLOBIN 32.9 uug (23.8-33.4); MEAN CORPUSCULAR VOLUME 99.7 fL (73.0-96.2); PHOSPHOROUS 2.6 mg/dL (2.5-4.9); PLATELET COUNT (AUTO) 106 K/uL (152-348); TOTAL PROTEIN, SERUM 6.6 g/dL (6.4-8.2); UREA NITROGEN, BLOOD 19 mg/dL (7-18)
[2021-06-29] MEDS: VANCOMYCIN IV 750 MG in IV DEXTROSE 5% 250 ML IV SCH ×2 (07:36→21:00)
[2021-06-29] MEDS: DOCUSATE SODIUM 100 MG/10 ML LIQUID UDC GT SCH ×2 (08:24→16:27)
[2021-06-29] MEDS: MIRALAX 17 GM POWD.PACK PO SCH (08:24)
[2021-06-29] MEDS: FAMOTIDINE 20 MG TABLET GT SCH (08:25)
[2021-06-29] MEDS: AMLODIPINE 2.5 MG TABLET GT SCH (08:25)
[2021-06-29] MEDS: levETIRAcetam 500 MG/5 ML LIQUID UDC GT SCH ×2 (08:26→20:32)
[2021-06-29 11:44] VITALS: BP 105/73
[2021-06-29] MEDS: IPRATROPIUM BROMIDE 0.5 MG/2.5 ML NEBU NEB SCH ×2 (14:28→19:05)
[2021-06-29] MEDS: ALBUTEROL SULFATE 2.5 MG/ 0.5 ML NEBU NEB SCH ×2 (14:28→19:05)
[2021-06-29 15:46] VITALS: BP 125/68
--- NOTE | 2021-06-29 20:00 | NUR ---
RECEIVED PATIENT AWAKE IN BED. ALERT TO SELF ONLY. NO S/S OF ANY PAIN OR DISCOMFORT. NO RESP. DISTRESS NOTED. ON O2 2L NC. VS WNL. IVF INFUSING WELL TO LEFT HAND. GT FEEDING INFUSING. HOB ELEVATED. CALL LIGHT IN REACH. ALL NEEDS ATTENDED. WILL CONTINUE TO MONITOR AND ASSESS.
[2021-06-29 20:25] VITALS: BP 100/57
[2021-06-29] MEDS: CEFTRIAXONE 1 G in IV DEXTROSE 5% 50 ML IV SCH (20:29)
[2021-06-30] MEDS: IPRATROPIUM BROMIDE 0.5 MG/2.5 ML NEBU NEB SCH ×4 (00:29→19:29)
[2021-06-30] MEDS: ALBUTEROL SULFATE 2.5 MG/ 0.5 ML NEBU NEB SCH ×4 (00:30→19:29)
[2021-06-30] MEDS: OSMOLITE 1.2 CAL 1,000 ML LIQUID GT PRN (01:49)
[2021-06-30] MEDS: IV 1/2NS 1000 ML 1,000 ML IV SCH (02:56)
[2021-06-30 04:30] VITALS: BP 122/74
[2021-06-30] MEDS: VANCOMYCIN IV 750 MG in IV DEXTROSE 5% 250 ML IV SCH (05:50)
[2021-06-30 06:05] LABS: CARBON DIOXIDE 31 mmol/L (21-32); CHLORIDE 109 mmol/L (98-107); CREATININE 0.5 mg/dL (0.6-1.3); GLUCOSE 110 mg/dL (74-106); POTASSIUM 4.6 mmol/L (3.5-5.1); UREA NITROGEN, BLOOD 15 mg/dL (7-18)
[2021-06-30] MEDS: MIRALAX 17 GM POWD.PACK PO SCH (08:06)
[2021-06-30] MEDS: DOCUSATE SODIUM 100 MG/10 ML LIQUID UDC GT SCH ×2 (08:06→16:43)
[2021-06-30] MEDS: levETIRAcetam 500 MG/5 ML LIQUID UDC GT SCH ×2 (08:06→20:39)
[2021-06-30] MEDS: FAMOTIDINE 20 MG TABLET GT SCH (08:07)
[2021-06-30] MEDS: AMLODIPINE 2.5 MG TABLET GT SCH (08:07)
[2021-06-30] MEDS ORDERED: IV 1/2NS 1000 ML 1,000 ML IV PRN (10:27)
[2021-06-30] MEDS ORDERED: HYDROCODONE/APAP 5-325MG TABLET GT PRN (10:39)
[2021-06-30] MEDS ORDERED: MAGNESIUM HYDROXIDE 30 ML LIQUID UDC GT PRN (10:40)
[2021-06-30 11:41] VITALS: BP 118/63
[2021-06-30 15:10] VITALS: BP 122/70
--- NOTE | 2021-06-30 19:36 | NUR ---
NSG: RECEIVED PT LYING IN BED. PT IN NO ACUTE DISTRESS. IV PATENT. PT IS CONTRACTED. G-TUBE INPLACE . SKILLED NURS SAFETY AND COMFORT PROVIDED. WILL CONTINUE TO MONITOR.
[2021-06-30] MEDS: CEFTRIAXONE 1 G in IV DEXTROSE 5% 50 ML IV SCH (20:20)
[2021-06-30 20:27] VITALS: BP 100/58
--- NOTE | 2021-07-01 00:31 | NUR ---
resting comfortably. no s/s of pain or discomfort at this time. assisted with adl's.
[2021-07-01] MEDS: IPRATROPIUM BROMIDE 0.5 MG/2.5 ML NEBU NEB SCH ×4 (00:43→19:15)
[2021-07-01] MEDS: ALBUTEROL SULFATE 2.5 MG/ 0.5 ML NEBU NEB SCH ×4 (00:43→19:15)
[2021-07-01 04:22] VITALS: BP 110/62
--- NOTE | 2021-07-01 04:51 | NUR ---
NSG: PT SLEPT INTERMITTENTLY. NO ACUTE DISTRESS NOTED. ASSISTED WITH ADL'S. REPOSITIONED FOR COMFORT AND SAFETY. ALL NEEDS ARE MET. CONTINUE PLAN OF CARE.
[2021-07-01] MEDS: DOCUSATE SODIUM 100 MG/10 ML LIQUID UDC GT SCH ×2 (08:09→16:39)
[2021-07-01] MEDS: MIRALAX 17 GM POWD.PACK PO SCH (08:09)
[2021-07-01] MEDS: levETIRAcetam 500 MG/5 ML LIQUID UDC GT SCH ×2 (08:09→20:00)
[2021-07-01] MEDS: FAMOTIDINE 20 MG TABLET GT SCH (08:09)
[2021-07-01] MEDS: AMLODIPINE 2.5 MG TABLET GT SCH (08:09)
[2021-07-01 08:33] LABS: HEMATOCRIT 32.5 % (36.7-47.1); MEAN CORPUSCULAR HEMOGLOBIN 33.1 uug (23.8-33.4); MEAN CORPUSCULAR VOLUME 95.9 fL (73.0-96.2); PLATELET COUNT (AUTO) 112 K/uL (152-348)
[2021-07-01 08:34] LABS: CARBON DIOXIDE 30 mmol/L (21-32); CHLORIDE 107 mmol/L (98-107); CREATININE 0.5 mg/dL (0.6-1.3); GLUCOSE 116 mg/dL (74-106); POTASSIUM 4.2 mmol/L (3.5-5.1); UREA NITROGEN, BLOOD 13 mg/dL (7-18)
[2021-07-01 11:18] VITALS: BP 114/57
[2021-07-01 15:19] VITALS: BP 120/72
[2021-07-01 19:35] VITALS: BP 106/61
[2021-07-01] MEDS: CEFTRIAXONE 1 G in IV DEXTROSE 5% 50 ML IV SCH (20:17)
[2021-07-01] MEDS: OSMOLITE 1.2 CAL 1,000 ML LIQUID GT PRN (23:05)
[2021-07-02] MEDS: IPRATROPIUM BROMIDE 0.5 MG/2.5 ML NEBU NEB SCH ×3 (00:33→12:42)
[2021-07-02] MEDS: ALBUTEROL SULFATE 2.5 MG/ 0.5 ML NEBU NEB SCH ×3 (00:33→12:42)
[2021-07-02 04:58] VITALS: BP 108/68
--- NOTE | 2021-07-02 07:20 | NUR ---
Received patient asleep in bed. No signs of acute distress. IV patent and intact. Bed locked and in low position. Will continue to monitor.
[2021-07-02] MEDS ORDERED: LEVO500T90 PO (08:36)
[2021-07-02] MEDS: MIRALAX 17 GM POWD.PACK PO SCH (08:51)
[2021-07-02] MEDS: DOCUSATE SODIUM 100 MG/10 ML LIQUID UDC GT SCH ×2 (08:51→16:36)
[2021-07-02] MEDS: FAMOTIDINE 20 MG TABLET GT SCH (08:51)
[2021-07-02] MEDS: AMLODIPINE 2.5 MG TABLET GT SCH (08:55)
[2021-07-02] MEDS: levETIRAcetam 500 MG/5 ML LIQUID UDC GT SCH (08:55)
[2021-07-02 12:00] VITALS: BP 102/60
[2021-07-02 16:15] VITALS: BP 101/63
--- NOTE | 2021-07-02 17:38 | NUR ---
Discharged patient to [facility]. Patient nonverbal. On 2L O2 via NC. No signs of acute distress. Vital signs WNL. Discharge paperwork sent to SNF. Belongings accounted for. Wound pictures taken and placed in chart. IV access removed. ID armband removed. Patient left unit via ambulance gurney. Nursing report given to RN in [facility].
== END 2021-07-02 17:25 | DRG 871 ==
LOC: ER 21:56 → TELE3 06-28 01:09 → MEDSURG3 06-28 10:01
PROVIDERS: ADMIT Internal Medicine; ATTEND Internal Medicine
DX: A41.9 Sepsis, unspecified organism (principal); N17.0 Acute kidney failure with tubular necrosis; G93.41 Metabolic encephalopathy; E43 Unspecified severe protein-calorie malnutrition; E87.0 Hyperosmolality and hypernatremia; J98.11 Atelectasis; N39.0 Urinary tract infection, site not specified; J90 Pleural effusion, not elsewhere classified; E86.1 Hypovolemia; F03.90 Unspecified dementia, unspecified severity, without behavioral disturbance, psychotic disturbance, mood disturbance, and anxiety; G40.909 Epilepsy, unspecified, not intractable, without status epilepticus; I10 Essential (primary) hypertension; I25.10 Atherosclerotic heart disease of native coronary artery without angina pectoris; K21.9 Gastro-esophageal reflux disease without esophagitis; Z86.16 Personal history of COVID-19; R13.10 Dysphagia, unspecified; Z86.73 Personal history of transient ischemic attack (TIA), and cerebral infarction without residual deficits; M19.90 Unspecified osteoarthritis, unspecified site; Z93.1 Gastrostomy status; J44.9 Chronic obstructive pulmonary disease, unspecified; E88.09 Other disorders of plasma-protein metabolism, not elsewhere classified; Z68.24 Body mass index [BMI] 24.0-24.9, adult; N13.9 Obstructive and reflux uropathy, unspecified; Z20.822 Contact with and (suspected) exposure to COVID-19
CPT/HCPCS: 36415; 51702; 70030-TC; 71045; 74018; 83605; 84100; 85025; 85730; 87040; 87086; 87400; 93005; 94640; 94664; A4217; A4663; A6209; G0378; J0696; J3370; J3490; J3590; J7030; J7050; J7060

== ENCOUNTER 2021-08-25 16:36 | Inpatient (IN) | payer MEDICARE, OTHER ==
[~2021-08-25] VITALS: Ht 172.7 cm; Wt 81.6 kg
[~2021-08-25 16:36] MED LIST changes: -ASCO500P18 GT; -CEPH500C2 GT; +CLON0.1T GT; +IPRA4AER IH; -LACT-209 GT; +LEVO500T90 PO
--- NOTE | 2021-08-25 16:55 | NUR ---
PT IS IN ROOM #1B. DR LENTZ EVALUATED THE PT.
[2021-08-25] MEDS ORDERED: VANCOMYCIN IV 1,000 MG in IV DEXTROSE 5% 250 ML IV ONE (17:00)
[2021-08-25] MEDS ORDERED: IV NORMAL SALINE 1000 ML BAG IV ONE (17:00)
[2021-08-25] MEDS ORDERED: PIPERACILLIN SODIUM/TAZOBACTAM 3.375 G in IV DEXTROSE 5% 50 ML IV ONE (17:00)
[2021-08-25] MEDS ORDERED: VANCOMYCIN IV 200 ML ONE (17:11)
[2021-08-25] MEDS ORDERED: PIPERACILLIN/TAZOBACTAM/D5W 50 ML IV ONE (17:11)
[2021-08-25 17:43] LABS: HEMATOCRIT 46.6 % (36.7-47.1); MEAN CORPUSCULAR HEMOGLOBIN 33.3 uug (23.8-33.4); PLATELET COUNT (AUTO) 241 K/uL (152-348)
[2021-08-25 17:51] LABS: CREATININE 0.9 mg/dL (0.6-1.3); POTASSIUM 4.8 mmol/L (3.5-5.1)
[2021-08-25 17:56] LABS: BILIRUBIN,DIRECT 0.1 mg/dL (0.0-0.2); BILIRUBIN,TOTAL 0.5 mg/dL (0.2-1.0); TOTAL PROTEIN, SERUM 9.4 g/dL (6.4-8.2)
[2021-08-25 18:14] LABS: *BILIRUBIN,URIN NEGATIVE (NEGATIVE); *COLOR,URINE DARK YELLOW (YELLOW); *KETONES,URINE TRACE (NEGATIVE); *UROBILINOGEN,URINE 0.2 E.U./dl (NORMAL); LEUKOCYTE ESTERASE ,URINE NEGATIVE (NEGATIVE); NITRITE, URINE NEGATIVE (NEGATIVE); UGLUCOSE NEGATIVE (NEGATIVE)
[2021-08-25] MEDS ORDERED: ACETAMINOPHEN 650 MG/20.3 ML LIQUID UDC PO ONE (18:15)
[2021-08-25 18:17] LABS: *BLOOD, URINE TRACE (NEGATIVE)
[2021-08-25 18:22] LABS: *CLARITY,URINE HAZY (CLEAR); BACTERIA,URINE FEW /HPF (NONE SEEN); SQUAMOUS EPITHELIAL CELL,UR FEW /HPF (NONE SEEN)
[2021-08-25 18:23] LABS: MUCUS,URINE FEW /LPF (0-FEW)
[2021-08-25] MEDS ORDERED: CEFEPIME HCL 1 G in IV DEXTROSE 5% 50 ML IV SCH (19:00)
[2021-08-25] MEDS ORDERED: ACETAMINOPHEN 325 MG TABLET-SA PATIENTS-PAIN ONLY GT PRN ×2 (19:00→22:30)
[2021-08-25] MEDS ORDERED: ACETAMINOPHEN 325 MG TABLET PO PRN (19:00)
[2021-08-25] MEDS ORDERED: ONDANSETRON 4 MG/2 ML VIAL IV PRN ×2 (19:00→20:15)
[2021-08-25] MEDS ORDERED: hydrALAZINE HCL 20 MG/1 ML VIAL IV PRN ×2 (19:00→20:15)
[2021-08-25] MEDS ORDERED: LABETALOL HCL 100 MG/20 ML VIAL IV PRN ×2 (19:00→20:15)
[2021-08-25] MEDS ORDERED: MORPHINE SULFATE 2 MG/1 ML DISP.SYRIN IV PRN ×2 (19:00→20:15)
[2021-08-25] MEDS ORDERED: IV NORMAL SALINE 250 ML IV ONE (19:06)
[2021-08-25] MEDS ORDERED: IOHEXOL 350 100 ML INFUS..BTL ONE (19:06)
[2021-08-25] MEDS ORDERED: SWABABLE VALVE TRANSFER SET EA MC ONE (19:06)
[2021-08-25] MEDS ORDERED: LORAZEPAM 2 MG/1 ML VIAL IV PRN ×2 (19:15→20:15)
[2021-08-25] MEDS ORDERED: CEFEPIME HCL 1 G VIAL ONE (19:33)
[2021-08-25] MEDS: IV D5 1/2 NS 1000 ML 1,000 ML IV SCH (20:02)
[2021-08-25] MEDS ORDERED: ACETAMINOPHEN 325 MG TABLET ONE (20:04)
[2021-08-25] MEDS ORDERED: levETIRAcetam 250 MG TABLET ONE (20:53)
[2021-08-25] MEDS ORDERED: DOCUSATE SODIUM 100 MG/10 ML LIQUID UDC ONE (20:55)
[2021-08-25] MEDS ORDERED: levETIRAcetam 500 MG/5 ML VIAL IV ONE (20:55)
[2021-08-25] MEDS ORDERED: ACETAMINOPHEN 325 MG TABLET GT PRN (21:00)
[2021-08-25] MEDS ORDERED: DOCUSATE SODIUM 100 MG/10 ML LIQUID UDC GT SCH (21:00)
[2021-08-25] MEDS ORDERED: levETIRAcetam 500 MG/5 ML LIQUID UDC GT SCH (21:00)
--- NOTE | 2021-08-25 22:32 | NUR ---
PT IS RESTING IN BED. NO S/S OF ACUTE DISTRESS.
[2021-08-26] MEDS ORDERED: VANCOMYCIN IV 1,000 MG in IV DEXTROSE 5% 250 ML IV ONE (05:00)
[2021-08-26] MEDS ORDERED: VANCOMYCIN IV 1,250 MG in IV DEXTROSE 5% 250 ML IV ONE (05:00)
--- NOTE | 2021-08-26 08:00 | NUR ---
pt received in bed, called ER to get report, pt dropped off in room. pt has contracted extremities, G tube in place, on 3L O2. pt aphasic, bed low and locked. VSS, no signs of distress, no reports of pain, will continue with plan of care.
--- NOTE | 2021-08-26 08:04 | NUR ---
Report given to Aurora ABDI Tele.
[2021-08-26] MEDS ORDERED: MIRALAX 17 GM POWD.PACK GT SCH (09:00)
[2021-08-26] MEDS ORDERED: AMLODIPINE 2.5 MG TABLET GT SCH (09:00)
[2021-08-26] MEDS ORDERED: VANCOMYCIN IV 1,000 MG in IV DEXTROSE 5% 250 ML IV SCH ×2 (09:00→17:00)
[2021-08-26] MEDS ORDERED: FAMOTIDINE 20 MG TABLET GT SCH (09:00)
[2021-08-26] MEDS: VANCOMYCIN IV 1,250 MG in IV DEXTROSE 5% 250 ML IV SCH ×2 (09:17→22:06)
[2021-08-26] MEDS: FAMOTIDINE 20 MG TABLET GT SCH (09:18)
[2021-08-26] MEDS: MIRALAX 17 GM POWD.PACK GT SCH ×2 (09:18→17:23)
[2021-08-26] MEDS: MULTIVITAMINS,THERAPEUTIC TABLET GT SCH (09:18)
[2021-08-26] MEDS: AMLODIPINE 2.5 MG TABLET GT SCH (09:44)
[2021-08-26] MEDS: levETIRAcetam 500 MG/5 ML LIQUID UDC GT SCH ×2 (10:30→22:07)
[2021-08-26] MEDS: DOCUSATE SODIUM 100 MG/10 ML LIQUID UDC GT SCH ×2 (10:30→22:07)
[2021-08-26] MEDS: CEFEPIME HCL 2 G in IV DEXTROSE 5% 100 ML IV SCH ×2 (10:31→18:29)
[2021-08-26 11:18] VITALS: BP 129/73
[2021-08-26] MEDS: IV D5 1/2 NS 1000 ML 1,000 ML IV SCH ×2 (13:37→23:43)
--- NOTE | 2021-08-26 17:00 | NUR ---
pt started on tube feeding.
[2021-08-26] MEDS ORDERED: JEVITY 1.2 1000 ML LIQUID GT PRN (17:30)
--- NOTE | 2021-08-26 19:30 | NUR ---
RECEIVED PT AWAKE . PT APHASIC. PT IN NO ACUTE DISTRESS. PT ON GTUBE FEEDING AND TOLERATING WELL. IV INTACT AND PATENT. SAFETY AND COMFORT PROVIDED. WILL CONTINUE TO MONITOR.
[2021-08-26 20:38] VITALS: BP 123/69
[2021-08-27] MEDS: CEFEPIME HCL 2 G in IV DEXTROSE 5% 100 ML IV SCH ×3 (01:12→17:39)
[2021-08-27 04:42] VITALS: BP 111/54
--- NOTE | 2021-08-27 06:54 | NUR ---
PT SLEPT INTERMITTENTLY. IV INTACT. PT ON GTUBE FEEDING AND TOLERATING WELL. PT ON 3L NASAL CANNULA. PT TURNED AND REPOSITIONED. SAFETY AND COMFORT PROVIDED. PT STABLE.ALL NEEDS ARE MET. WILL ENDORSE TO INCOMING NURSE FOR CONTINUITY OF CARE.
--- NOTE | 2021-08-27 08:00 | NUR ---
RECEIVED PATIENT IN BED WITH EYES CLOSED BUT NOTED FACIAL GRIMACES WITH PAINFUL TOUCH. CONTINUE WITH TUBE FEEDING X20 HRS DAILY NO RESIDUAL NOTED . PATIENT TOLERATING FEEDING WELL. NO ALLERGY REACTION FROM IV ANTIBIOTICS
[2021-08-27 08:47] LABS: HEMATOCRIT 35.7 % (36.7-47.1); MEAN CORPUSCULAR HEMOGLOBIN 32.6 uug (23.8-33.4); PLATELET COUNT (AUTO) 164 K/uL (152-348)
[2021-08-27] MEDS: AMLODIPINE 2.5 MG TABLET GT SCH (09:00)
[2021-08-27 09:02] LABS: CARBON DIOXIDE 30 mmol/L (21-32); CHLORIDE 110 mmol/L (98-107); CREATININE 0.5 mg/dL (0.6-1.3); GLUCOSE 99 mg/dL (74-106); POTASSIUM 3.8 mmol/L (3.5-5.1); UREA NITROGEN, BLOOD 16 mg/dL (7-18)
[2021-08-27] MEDS: MULTIVITAMINS,THERAPEUTIC TABLET GT SCH (09:07)
[2021-08-27] MEDS: FAMOTIDINE 20 MG TABLET GT SCH (09:07)
[2021-08-27] MEDS: MIRALAX 17 GM POWD.PACK GT SCH ×2 (09:07→17:40)
[2021-08-27] MEDS: DOCUSATE SODIUM 100 MG/10 ML LIQUID UDC GT SCH ×2 (09:07→21:00)
[2021-08-27] MEDS: VANCOMYCIN IV 1,250 MG in IV DEXTROSE 5% 250 ML IV SCH ×2 (09:12→20:57)
[2021-08-27] MEDS: levETIRAcetam 500 MG/5 ML LIQUID UDC GT SCH ×2 (10:46→21:00)
--- NOTE | 2021-08-27 10:55 | NUR ---
bassam 08/26 for 0500 dose not given pharmacy notified
[2021-08-27 11:42] VITALS: BP 116/74
--- NOTE | 2021-08-27 12:00 | NUR ---
SEEN BY DR POTTER FOR FOLLOW-UP SEE NOTES
[2021-08-27 15:32] VITALS: BP 121/78
--- NOTE | 2021-08-27 15:32 | NUR ---
no acute change from morning assessment continue with current tx plan
[2021-08-27] MEDS: IV D5 1/2 NS 1000 ML 1,000 ML IV SCH (17:27)
[2021-08-27 20:05] VITALS: BP 106/72
[2021-08-28] MEDS: CEFEPIME HCL 2 G in IV DEXTROSE 5% 100 ML IV SCH ×3 (02:00→18:24)
[2021-08-28 04:03] VITALS: BP 117/58
--- NOTE | 2021-08-28 08:00 | NUR ---
AWAKE ALERT BUT NO VERBAL NO SS OF PAIN OR SOB. CONTINUE TF NO RESIDUAL. PLAN DC TODAY BACK TO SNF
[2021-08-28] MEDS: MIRALAX 17 GM POWD.PACK GT SCH ×2 (08:53→17:00)
[2021-08-28] MEDS: AMLODIPINE 2.5 MG TABLET GT SCH (08:55)
[2021-08-28] MEDS: MULTIVITAMINS,THERAPEUTIC TABLET GT SCH (08:55)
[2021-08-28] MEDS: FAMOTIDINE 20 MG TABLET GT SCH (08:55)
[2021-08-28] MEDS: levETIRAcetam 500 MG/5 ML LIQUID UDC GT SCH ×2 (08:56→20:44)
[2021-08-28] MEDS: DOCUSATE SODIUM 100 MG/10 ML LIQUID UDC GT SCH ×2 (08:56→20:45)
[2021-08-28 10:29] LABS: HEMATOCRIT 33.8 % (36.7-47.1); MEAN CORPUSCULAR HEMOGLOBIN 33.2 uug (23.8-33.4); MEAN CORPUSCULAR VOLUME 96.7 fL (73.0-96.2); PLATELET COUNT (AUTO) 165 K/uL (152-348)
[2021-08-28 10:39] LABS: CARBON DIOXIDE 29 mmol/L (21-32); CHLORIDE 105 mmol/L (98-107); CREATININE 0.4 mg/dL (0.6-1.3); GLUCOSE 116 mg/dL (74-106); MAGNESIUM 2.1 mg/dL (1.8-2.4); PHOSPHOROUS 3.1 mg/dL (2.5-4.9); POTASSIUM 4.1 mmol/L (3.5-5.1); UREA NITROGEN, BLOOD 12 mg/dL (7-18)
[2021-08-28] MEDS: VANCOMYCIN IV 1,250 MG in IV DEXTROSE 5% 250 ML IV SCH (10:39)
[2021-08-28 11:45] VITALS: BP 123/84
[2021-08-28 15:58] VITALS: BP 117/41
--- NOTE | 2021-08-28 16:09 | NUR ---
PATIENT DISCHARGED TO [facility] VIA AMBULANCE . PICTURE NOT TAKEN PATIENT REFUSED. TRIED TO CALL [place] FOR REPORT LIKE 3 TIMES BUT NO ONE CALLED. REPORT GIVEN TO AMBULANCE
--- NOTE | 2021-08-28 16:44 | NUR ---
PATIENT RETURNED FROM [place] VIA AMBULANCE, DR MOONEY AWARE
[2021-08-28 20:00] VITALS: BP 149/60
--- NOTE | 2021-08-28 21:11 | NUR ---
Patient awake mumbling, non verbal in no acute distress noted.HOB elevated.O2 at 3LPM via Nc.No s/s of distress noted.Patient picked up by [facility] with 2 crew. Report given to one of the sponge buffer.Discharged to [facility] rehab in stable condition.keppra and colace given.Gtube in place.No residual noted.All discharged papers were taken.VSS
== END 2021-08-28 21:05 | DRG 871 ==
LOC: ER 16:38 → TRANSITION 08-26 00:53 → TELE3 08-26 06:24 → MEDSURG3 08-26 11:10
PROVIDERS: ADMIT Internal Medicine; ATTEND Internal Medicine
DX: A41.9 Sepsis, unspecified organism (principal); G93.41 Metabolic encephalopathy; N39.0 Urinary tract infection, site not specified; R47.01 Aphasia; E87.0 Hyperosmolality and hypernatremia; G40.909 Epilepsy, unspecified, not intractable, without status epilepticus; J44.9 Chronic obstructive pulmonary disease, unspecified; F01.50 Vascular dementia, unspecified severity, without behavioral disturbance, psychotic disturbance, mood disturbance, and anxiety; R13.10 Dysphagia, unspecified; Z93.1 Gastrostomy status; I25.10 Atherosclerotic heart disease of native coronary artery without angina pectoris; Z79.899 Other long term (current) drug therapy; Z86.73 Personal history of transient ischemic attack (TIA), and cerebral infarction without residual deficits
CPT/HCPCS: 36415; 51702; 70030-TC; 70450; 71045; 71275; 83605; 83735; 84100; 85025; 85730; 87040; 87086; 93005; 93307; 97161; A4663; A6209; G0378; J0692; J1953; J2543; J3370; J3490; J7030; J7050; J7060; Q9967

== ENCOUNTER 2021-09-21 14:04 | Inpatient (IN) | payer MEDICARE, OTHER ==
[~2021-09-21] VITALS: Ht 160 cm; Wt 63.5 kg
[~2021-09-21 14:04] MED LIST changes: -LEVO500T90 PO
--- NOTE | 2021-09-21 14:15 | NUR ---
Patient BIB ambulance for GT malfunction. Reported that GT pulled out 2hr SOLVENT MIXER.
--- NOTE | 2021-09-21 14:20 | NUR ---
Dr. Bentley on bedside for MSE.
--- NOTE | 2021-09-21 14:24 | NUR ---
Epic panel call placed spoke to Sebastian, he stated she will get a hold of DNP Dl for admitting.
[2021-09-21] MEDS ORDERED: HYDROCODONE/APAP 5-325MG TABLET PO ONE (14:30)
[2021-09-21] MEDS ORDERED: POLY17PO4 GT (14:38)
[2021-09-21] MEDS ORDERED: COLL30OI TOP (14:38)
[2021-09-21] MEDS ORDERED: ZINC220C6 GT (14:38)
--- NOTE | 2021-09-21 14:47 | NUR ---
Telephone call to Dr. Lombardo and on panel call with Dr. Bentley.
--- NOTE | 2021-09-21 15:00 | NUR ---
Dr. Bentley on panel call with CALLUM Lizama. Patient accepted for admission to [facility] unit. Dx GT malfunction.
[2021-09-21] MEDS ORDERED: Z GUARD REMEDY PASTE 57 GM TUBE TOP PRN (15:30)
[2021-09-21] MEDS ORDERED: ACETAMINOPHEN 650 MG SUPP.RECT RC PRN (15:30)
[2021-09-21] MEDS ORDERED: ONDANSETRON 4 MG/2 ML VIAL IV PRN (15:30)
--- NOTE | 2021-09-21 16:00 | NUR ---
Pt. admitted to [facility] unit room 320, under care of CALLUM Lizama. Belongs List completed.
[2021-09-21] MEDS ORDERED: LORAZEPAM 2 MG/1 ML VIAL IV PRN (16:15)
--- NOTE | 2021-09-21 16:15 | NUR ---
received from ER awake but non verbal, left upper extremities and lower extremities contracted, initial assessment done, no distress noted, vs taken and recorded, kept comfortable
[2021-09-21 16:26] VITALS: BP 142/87
[2021-09-21] MEDS: IV NS 1000 ML 1,000 ML IV PRN (16:36)
[2021-09-21] MEDS ORDERED: levETIRAcetam IV 500 MG in IV DEXTROSE 5% 100 ML IV SCH (18:00)
[2021-09-21] MEDS: levETIRAcetam IV 1,500 MG in IV DEXTROSE 5% 100 ML IV SCH (18:04)
--- NOTE | 2021-09-21 18:45 | NUR ---
resting, watching tv, no distress noted, rails pads placed for seizure precautions, all needs attended and met, safety measures maintained
[2021-09-21 21:00] VITALS: BP 131/74
[2021-09-22] MEDS: levETIRAcetam IV 1,500 MG in IV DEXTROSE 5% 100 ML IV SCH ×2 (05:01→20:32)
[2021-09-22 05:10] VITALS: BP 140/73
[2021-09-22] MEDS: IV NS 1000 ML 1,000 ML IV PRN ×2 (05:22→22:04)
[2021-09-22 07:00] LABS: MEAN CORPUSCULAR HEMOGLOBIN 32.9 uug (23.8-33.4); MEAN CORPUSCULAR VOLUME 97.2 fL (73.0-96.2); PLATELET COUNT (AUTO) 174 K/uL (152-348)
--- NOTE | 2021-09-22 07:08 | NUR ---
Pt slept through the night. Vitals WNL. Seizure and fall precaution maintained. Comfort care and needs attended. Safety measures in place. Will endorse to oncoming nurse.
[2021-09-22 08:20] VITALS: BP 128/81
--- NOTE | 2021-09-22 08:30 | NUR ---
Pt received awake, pt is not verbally responsive. VS stable. Pt's IV noted to be infiltrated. IV infusion was stopped. Notified MD, Midline insertion was ordered. No distress.
[2021-09-22 08:37] LABS: CARBON DIOXIDE 29 mmol/L (21-32); CHLORIDE 111 mmol/L (98-107); CREATININE 0.6 mg/dL (0.6-1.3); GLUCOSE 95 mg/dL (74-106); MAGNESIUM 2.2 mg/dL (1.8-2.4); PHOSPHOROUS 3.6 mg/dL (2.5-4.9); UREA NITROGEN, BLOOD 16 mg/dL (7-18)
[2021-09-22] MEDS: PANTOPRAZOLE SODIUM 40 MG VIAL IV SCH ×2 (09:17→18:41)
[2021-09-22] MEDS ORDERED: CEFAZOLIN 1 G VIAL IM ONE (11:00)
[2021-09-22] MEDS ORDERED: LIDOCAINE-MPF 2% 5 ML VIAL IJ ONE (11:00)
[2021-09-22] MEDS ORDERED: PROPOFOL 200 MG/20 ML BOTTLE IV ONE (11:00)
[2021-09-22 12:45] VITALS: BP 131/62
[2021-09-22 16:27] VITALS: BP 133/84
--- NOTE | 2021-09-22 16:30 | NUR ---
air matrass delivered and installed.
--- NOTE | 2021-09-22 18:00 | NUR ---
Midline Right Upper Arm inserted, moisés 18. IV fluids back running.
--- NOTE | 2021-09-22 19:15 | NUR ---
Received patient in bed. Awake but not verbally responsive. Reoriented patient to place, time and call light button. No acute distress noted. IV on ELOY midline, running 0.9% NS at 75 cc/hr. Fall precaution and comfort measures initiated. Will continue to monitor.
[2021-09-22 20:23] VITALS: BP 155/78
[2021-09-23] MEDS: IV NS 1000 ML 1,000 ML IV PRN ×2 (03:40→20:30)
[2021-09-23 04:28] VITALS: BP 149/90
--- NOTE | 2021-09-23 06:26 | NUR ---
Patient slept through the night. AOx1. Reoriented patient to place and time. All due medications were given as ordered. IVF still running, with no signs of infection or infiltration. Redness on sacral area was cleansed with normal saline, covered with Z guard and Mepilex. No acute distress noted at this time. Safety precautions and comfort measures were maintained. All needs were attended to and met. Will endorse to day shift nurse.
[2021-09-23 06:48] LABS: HEMATOCRIT 38.4 % (36.7-47.1); MEAN CORPUSCULAR HEMOGLOBIN 32.3 uug (23.8-33.4); MEAN CORPUSCULAR VOLUME 97.7 fL (73.0-96.2); PLATELET COUNT (AUTO) 167 K/uL (152-348)
[2021-09-23 07:07] LABS: CARBON DIOXIDE 28 mmol/L (21-32); CHLORIDE 109 mmol/L (98-107); CREATININE 0.6 mg/dL (0.6-1.3); GLUCOSE 73 mg/dL (74-106); POTASSIUM 4.2 mmol/L (3.5-5.1); UREA NITROGEN, BLOOD 14 mg/dL (7-18)
[2021-09-23] MEDS: PANTOPRAZOLE SODIUM 40 MG VIAL IV SCH (08:23)
[2021-09-23] MEDS: levETIRAcetam IV 1,500 MG in IV DEXTROSE 5% 100 ML IV SCH ×2 (08:26→20:25)
--- NOTE | 2021-09-23 10:30 | NUR ---
Pt is in no acute distress. Pt picked up by surgical team. Received telephone consent from brother DPOA from [place] witness with power regulator. Midline on right arm intact and patent.
[2021-09-23 15:58] VITALS: BP 137/68
[2021-09-23] MEDS ORDERED: JEVITY 1.2 1000 ML LIQUID GT PRN (16:30)
[2021-09-23 20:14] VITALS: BP 160/66
[2021-09-24 04:30] VITALS: BP 137/84
--- NOTE | 2021-09-24 07:15 | NUR ---
Pt rested well in between care; no acute distress; repositioned for comfort; tolerated GTF; applied condom cath; safety maintained; needs attended.
[2021-09-24] MEDS: PANTOPRAZOLE SODIUM 40 MG VIAL IV SCH (07:59)
--- NOTE | 2021-09-24 08:00 | NUR ---
Pt contracted on position. Noted wound on left foot at great big toe and 5th digit, and left lateral foot. sacral redness covered with mepilex. Pt is in no acute distress. Call light is within reach.
[2021-09-24] MEDS: levETIRAcetam IV 1,500 MG in IV DEXTROSE 5% 100 ML IV SCH (08:01)
--- NOTE | 2021-09-24 11:49 | NUR ---
WOUND CARE CONSULT: PT PRESENTS WITH SACRAL SCAR AND SCABS TO LEFT GREAT TOE AND LEFT 5TH TOE, PRESENT ON ADMISSION. HEALED AREAS NOTED TO LEFT LATERAL FOOT. PT IS ON FIRST STEP CIRRUS LOW AIRLOSS MATTRESS. RECOMMENDATIONS MADE FOR SKIN PROTECTION. DISCUSSED WITH NURSING STAFF. MD IN AGREEMENT WITH PLAN OF CARE.
[2021-09-24 12:00] VITALS: BP 132/63
--- NOTE | 2021-09-24 16:30 | NUR ---
Pt is in no acute distress. Pt picked up by ambulance. Report given to tawana valladares from [facility]. Pictures taken and updated. Wound tx copy made for SNF. Pt tolerated tube feeding no residual noted. Flushed GTUBE and clamped for discharge.
[2021-09-24] MEDS ORDERED: levETIRAcetam 500 MG/5 ML LIQUID UDC GT SCH (21:00)
[2021-09-25] MEDS ORDERED: PANTOPRAZOLE ORAL SUSPENSION 40 MG SUSPDR.PKT GT SCH (06:00)
== END 2021-09-24 16:30 | DRG 393 ==
LOC: ER 14:04 → MEDSURG3 15:46
PROVIDERS: ADMIT Hospitalist; ATTEND Hospitalist
PROC: 05HB33Z Insertion of Infusion Device into Right Basilic Vein, Percutaneous Approach (ICD-10-PCS; 2021-09-22)
PROC: 0DJ08ZZ Inspection of Upper Intestinal Tract, Via Natural or Artificial Opening Endoscopic (ICD-10-PCS; principal; 2021-09-23)
PROC: 0D20XUZ Change Feeding Device in Upper Intestinal Tract, External Approach (ICD-10-PCS; 2021-09-23)
DX: K94.23 Gastrostomy malfunction (principal); R53.2 Functional quadriplegia; D68.59 Other primary thrombophilia; R47.01 Aphasia; D64.9 Anemia, unspecified; F01.50 Vascular dementia, unspecified severity, without behavioral disturbance, psychotic disturbance, mood disturbance, and anxiety; G40.909 Epilepsy, unspecified, not intractable, without status epilepticus; I10 Essential (primary) hypertension; I25.10 Atherosclerotic heart disease of native coronary artery without angina pectoris; I69.391 Dysphagia following cerebral infarction; R13.10 Dysphagia, unspecified; I69.311 Memory deficit following cerebral infarction; K29.70 Gastritis, unspecified, without bleeding; L21.9 Seborrheic dermatitis, unspecified; M19.90 Unspecified osteoarthritis, unspecified site; M81.0 Age-related osteoporosis without current pathological fracture; Z20.822 Contact with and (suspected) exposure to COVID-19; Z79.899 Other long term (current) drug therapy; K21.9 Gastro-esophageal reflux disease without esophagitis; M24.50 Contracture, unspecified joint
CPT/HCPCS: 36415; 43761; 74018; 83735; 84100; 85025; 85730; A4217; A4663; A6209; C9113; G0378; J0690; J1953; J3490; J7030; J7060

== ENCOUNTER 2021-10-12 14:37 | Emergency (ER) | payer MEDICARE, OTHER ==
[~2021-10-12 14:37] MED LIST changes: +COLL30OI TOP; -MULT-594 GT; -NA P133E RC; +ZINC220C6 GT
[2021-10-12 16:02] LABS: HEMATOCRIT 38.6 % (36.7-47.1); MEAN CORPUSCULAR HEMOGLOBIN 32.5 uug (23.8-33.4); MEAN CORPUSCULAR VOLUME 94.8 fL (73.0-96.2); PLATELET COUNT (AUTO) 206 K/uL (152-348)
[2021-10-12 16:25] LABS: ALANINE AMINOTRANSFERASE 32 U/L (16-63); ALKALINE PHOSPHATASE 121 U/L (50-136); ASPARTATE AMINOTRANSFERASE 27 U/L (15-37); BILIRUBIN,DIRECT < 0.1 mg/dL (0.0-0.2); BILIRUBIN,TOTAL 0.3 mg/dL (0.2-1.0); CARBON DIOXIDE 23 mmol/L (21-32); CHLORIDE 102 mmol/L (98-107); POTASSIUM 4.5 mmol/L (3.5-5.1); TOTAL PROTEIN, SERUM 8.3 g/dL (6.4-8.2); UREA NITROGEN, BLOOD 13 mg/dL (7-18)
[2021-10-12] MEDS ORDERED: DIATR MEGLU/DIATRIZOATE SODIUM 30 ML BOTTLE ONE (16:35)
[2021-10-12 16:45] LABS: CREATININE 0.4 mg/dL (0.6-1.3); GLUCOSE 97 mg/dL (74-106)
[2021-10-12] MEDS ORDERED: AZITHROMYCIN 300 MG/15 ML BOTTLE GT ONE (18:00)
[2021-10-12] MEDS ORDERED: AZIT250T GT (18:08)
[2021-10-12] MEDS ORDERED: AZITHROMYCIN 250 MG TABLET ONE (18:38)
--- NOTE | 2021-10-12 18:56 | NUR ---
G-tube was replaced by OUMOU Francis. XR done to confirm placement. Pt is minimally responsive, using hand gestures. States feeling ok. Pt is now being transported back to [facility]. I have made multiple attempts to contact receiving facility to endorse their pt back to their care. Unable to connect or continue to get an answering machine. Transport provided with facesheet and information from [facility] stating what room and location of pt before being brought to our facility. EMS states they will ask staff at receiving facility to call us for report. Patient discharged to home in stable condition. Written and verbal after care instructions given. Patient verbalizes understanding of instructions. Stressed follow up or return to ER for worsening s/s.
[2021-10-12 19:16] VITALS: BP 144/71
--- NOTE | 2021-10-12 19:43 | NUR ---
Elodia from [facility]. Gave report and faxed Labs and XR report.
== END 2021-10-12 19:00 ==
LOC: ER 14:40
DX: Z43.1 Encounter for attention to gastrostomy (principal); R91.8 Other nonspecific abnormal finding of lung field; R94.31 Abnormal electrocardiogram [ECG] [EKG]; Z20.822 Contact with and (suspected) exposure to COVID-19; F03.90 Unspecified dementia, unspecified severity, without behavioral disturbance, psychotic disturbance, mood disturbance, and anxiety; G40.909 Epilepsy, unspecified, not intractable, without status epilepticus; Z86.16 Personal history of COVID-19; I25.10 Atherosclerotic heart disease of native coronary artery without angina pectoris; K21.9 Gastro-esophageal reflux disease without esophagitis
CPT/HCPCS: 36415; 71045; 74018; 85025; 93005; A4663; Q0144; Q9963